=== PATIENT | male | born 1965 | race Caucasian/White ===

== ENCOUNTER 2023-08-25 14:47 | Outpatient (AMB) | payer BC, SELFPAY ==
--- NOTE | 2023-08-25 14:53 | A.OFFPC_ITS ---
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 Has been using claritin for relief. L heel pain PMHx: Childhood ADD/ADHD, concussions as a child, Scrotal issues, Erectile Dysfunction SurgHx: [place] teeth FHx: Mom: Sinus issues brother:??Bradycardia. Grandmother: ?Colon Cancer. Grandfather: Throat CA. Dad: Unknown. SocHx: Nonsmoker since 20s. EtOH none. MJ PFSH Medical History (Updated 08/25/23 @ 15:47 by Sergei Hanna) Scrotal cyst ADHD ADD (attention deficit disorder) No pertinent past medical history Surgical History (Updated 08/25/23 @ 15:04 by Jessica Henderson CMA) [place] teeth removed Family History (Updated 08/25/23 @ 15:05 by Jessica Henderson CMA) Mother History of sinus problem Social History (Updated 08/25/23 @ 15:09 by Jessica Henderson CMA) Household Members: Significant Other Patient Tobacco Use Status: Former Tobacco user e-Cigarette/Vaping Use: Never Used Substance Use Type: Marijuana Have you been hit, kicked, punched, or otherwise hurt by someone within the past year? If so, by whom?: No Do you feel safe in your current relationship?: Yes Is there a partner from a previous relationship who is making you feel unsafe now?: No Are you made to feel afraid or neglected: No Mormonism Healthcare Practices: mormonism Are you DNR?: No Advance Directives: No Advance Directives Information Provided: No Advance Directives on File: No Healthcare Proxy: No Questionnaire PHQ-9 Over the last 2 weeks, how often have you been bothered by any of the following problems? 1. Little interest or pleasure in doing things: not at all 2. Feeling down, depressed, or hopeless: not at all 3. Trouble falling or staying asleep, or sleeping too much: not at all 4. Feeling tired or having little energy: not at all 5. Poor appetite or overeating: not at all 6. Feeling bad about yourself - or that you are a failure or have let yourself or your family down: not at all 7. Trouble concentrating on things, such as reading the newspaper or watching television: not at all 8. Moving or speaking so slowly that other people could have noticed. Or the opposite - being so fidgety or restless that you have been moving around a lot more than usual: not at all 9. Thoughts that you would be better off or of hurting yourself in some way: not at all Total score: 0 Source: Developed by Drs. Sarmad Bass, Humaira Brown, Larry Mckay and colleagues, with an educational sally from [employer]. Thrive Questionnaire Date Thrive assessed: 08/25/23 I am a: Patient What is your living situation today?: I have a steady place to live Within the past 12 months, did the food you bought not last and you didn't have the money to get more?: Never true Within the past 12 months, did you worry whether your food would run out before you got money to buy more?: Never true Do you have trouble paying for medicines?: No Do you have trouble getting transportation to medical appointments?: No Do you have trouble paying your heating and electricity bill?: No Do you have trouble taking care of your child, family member or friend?: No Do you have trouble with day-to-day activities such as bathing, preparing meals, shopping, managing finances, etc.?: No Are you currently unemployed and looking for a job?: No Are you interested in more education?: No AUDIT C Alcohol Use Questionnaire (AUDIT-C) 1. How often do you have a drink containing alcohol?: 4 or more times a week 2. How many drinks containing alcohol do you have on a typical day when you are drinking?: 1 or 2 3. How often do you have six or more drinks on one occasion?: Never Total Score: 4 CORRIE-7 AMB Questionnaire CORRIE-7 Date CORRIE - 7 assessed: 08/25/23 Feeling nervous, anxious, or on edge: 1 = Several days Not being able to stop or control worryin = Not at all Worrying too much about different things: 0 = Not at all Trouble relaxin = Several days Being so restless that it is hard to sit still: 3 = Nearly every day (Patient has ADD) Becoming easily annoyed or irritable: 0 = Not at all Feeling afraid as if something awful might happen: 1 = Several days Total CORRIE-7 score (0-4 normal; 5-9 mild; 10-14 moderate; 15-21 severe): 6 Source: Developed by Drs. Sarmad Bass, Humaira Brown, Larry Mckay and colleagues, with an educational sally from [employer]. Review of Systems Const Denies chills, Denies fatigue, Denies fever(s), Denies headache(s) and Denies weakness ENT Denies dizziness and Denies headache(s) Card Denies chest pain, Denies lightheadedness, Denies dyspnea and Denies other (Palpitations) Resp Denies cough, Denies dyspnea, Denies wheezing and Denies other ( shortness of b reath) Musc Denies numbness and Denies tingling Neuro Denies dizziness, Denies headache(s), Denies numbness, Denies tingling, Denies paresthesias and Denies weakness Psych Denies anxiety and Denies depression Endo Denies fatigue Aller/Immun Denies wheezing Physical exam (Primary Care) Vital Signs: Last Vital Signs Pulse 67 08/25/23 14:55 BP 134/74 08/25/23 14:55 Pulse Ox 99 08/25/23 14:55 Oxygen Delivery Method Room Air 08/25/23 14:55 BMI result Body Mass Index 25.0 Tobacco/Smoking Status: Tobacco use Status Tobacco use date assessed 08/25/23 08/25/23 15:00 Patient Tobacco Use Status Former Tobacco user 08/25/23 15:09 e-Cigarette/Vaping Use Never Used 08/25/23 15:09 PHQ-9: PHQ-9 Score PHQ-9: Total score 0 08/25/23 15:24 Thrive Assessment: Date of Thrive Assessment Date Thrive assessed 08/25/23 08/25/23 15:17 Const General: no acute distress and well developed Nutritional Appearance: well nourished Orientation/consciousness: patient oriented x3 [facility] Head: Yes normocephalic and Yes atraumatic Eyes General: appearance normal, both eyes and all related structures Pupils: Equal, round and reactive pupils present EOM: EOMs intact bilaterally Resp Effort & Inspection: normal respiratory effort Auscultation: clear to auscultation bilaterally Cardio Rate: bradycardic Rhythm: regular rhythm Heart sounds: S1 normal heart sound present, S2 normal heart sound present, no gallops, no murmurs and no rubs Neuro General: patient oriented x3 and gait normal Cranial nerves: Yes Equal, round and reactive pupils present Psych Affect: normal affect Office Procedures EKG [id number], Complete Assessment and Plan Assessment & Plan (1) Sinusitis, chronic: Code(s): J32.9 - Chronic sinusitis, unspecified Plan: Continue?Claritin Trial?Flonase Also?discussed?nasal?saline,?hypoallergenic?bed?cover?and?humidified?air. Has?2?cats?and?briefly?advised?he?may?want?to?keep?him?out?of?the?bedroom (2) Pain of left heel: Code(s): M79.672 - Pain in left foot Plan: Prior?trauma?and?has?chronic?calcaneal?pain Advised?rest He?can?let?me?know?if?worsening?or?not?improving?and?we?can?check?an?x-ray (3) Scrotal cyst: Code(s): L72.9 - Follicular cyst of the skin and subcutaneous tissue, unspecified Plan: He?will?let?me?know?if?this?is?changing He?declines?a?referral?at?this?time (4) Difficulty concentrating: Code(s): R41.840 - Attention and concentration deficit Plan: Report?History?of?ADD/ADHD?as?a?child (5) Screening for colon cancer: Code(s): Z12.11 - Encounter for screening for malignant neoplasm of colon Plan: Referred?to?GI?as?patient?request (6) Bradycardia: Code(s): R00.1 - Bradycardia, unspecified Plan: Bradycardia?with?some?pauses. EKG: ?Sinus?bradycardia?with?occasional?PVCs, left?atrial?enlargement, incomplete?right?bundle?branch?block Family?history?of?bradycardia?and?cardiac?issues?with?brother Patient?is?asymptomatic. Will?send?him?for?an?echocardiogram.??May?need?referral?to?Cardiology (7) Erectile dysfunction: Code(s): N52.9 - Male erectile dysfunction, unspecified Plan: Patient?notes?erectile?dysfunction?over?the?summer?which?seems?to?have?resolved. Check?testosterone (8) Eustachian tube dysfunction: Code(s): H69.90 - Unspecified Eustachian tube disorder, unspecified ear Plan: As?above,?prescribing?Flonase?which?should?help?with?this (9) Laboratory exam ordered as part of routine general medical examination: Code(s): Z00.00 - Encounter for general adult medical examination without abnormal findings Plan: Check?lab (10) Left atrial enlargement: Code(s): I51.7 - Cardiomegaly Orders: Orders Comprehensive [place]. Panel Fast Today Z00.00 - Encounter for general adult medical examination without abnormal findings Lipid Panel Today Z00.00 - Encounter for general adult medical examination without abnormal findings Microalbumin, Random (w Creat) Today I10 - Essential (primary) hypertension TSH reflex Free T4 Today Z00.00 - Encounter for general adult medical examination without abnormal findings UA and rflx microscopic Today Z00.00 - Encounter for general adult medical examination without abnormal findings Testosterone, Free/Total Today N52.9 - Male erectile dysfunction, unspecified AMB EKG-In Office Today R00.2 - Palpitations Prostate Specific Antigen Scr Today Z12.5 - Encounter for screening for malignant neoplasm of prostate CA echo transthoracic complete Today I51.7 - Cardiomegaly, R94.31 - Abnormal electrocardiogram [ECG] [EKG] Referrals Gastroenterology Referral Z12.11 - Encounter for screening for malignant neoplasm of colon Medications: New fluticasone propionate 50 mcg/actuation (Flonase Allergy Relief) administer into each nostril 1 spray intranasal Q12H 16 grams 2RF 30 days Coding Level of Care Code New Pt Level 4 (95001) Diagnoses Sinusitis, chronic J32.9 Pain of left heel M79.672 Scrotal cyst L72.9 Difficulty concentrating R41.840 Screening for colon cancer Z12.11 Bradycardia R00.1 Erectile dysfunction N52.9 Eustachian tube dysfunction H69.90 Laboratory exam ordered as part of routine general medical examination Z00.00 Left atrial enlargement I51.7 CPT Codes EKG - CPT: 03477-[id number], Complete ([id number])
[2023-08-25 14:55] VITALS: BP 134/74; PULSE 67; O2SAT 99; BMI 25.0
== END 2023-08-25 16:06 | disposition home or self-care (01) ==
PROVIDERS: PCP Family Medicine; Visit Provider Family Medicine
DX: J32.9 Chronic sinusitis, unspecified (principal); M79.672 Pain in left foot; L72.9 Follicular cyst of the skin and subcutaneous tissue, unspecified; R41.840 Attention and concentration deficit; Z12.11 Encounter for screening for malignant neoplasm of colon; R00.1 Bradycardia, unspecified; N52.9 Male erectile dysfunction, unspecified; H69.90 Unspecified Eustachian tube disorder, unspecified ear; Z00.00 Encounter for general adult medical examination without abnormal findings; I51.7 Cardiomegaly
CPT/HCPCS: 93000; 99204

== ENCOUNTER → 2023-09-21 14:43 | Outpatient (REF) | payer BC, SELFPAY ==
--- NOTE | 2023-09-21 14:50 | CA_ITS ---
Transthoracic Echocardiogram Patient (Last, First, Middle): Speedy Zhou, Gender: Male Date of : 1965 Age: 58 Procedure Date: 09/21/2023 Procedure Type: Transthoracic Echocardiogram Location: OP Height: 177.8 cm Weight: 78.93 kg BSA: 1.97 m2 Heart Rate: bpm BP: 124 / 70 mmHg Hip Hop Dancer: RUBEN Referring MD: Luis Guevara MD Symptoms: I51.7 - Cardiomegaly Study Quality: Adequate ECG Rhythm: Sinus Conclusions: - Mildly increased left ventricular cavity size. - The left ventricular systolic function is normal. The calculated ejection fraction is 65% by biplane method. - The left atrium is mildly dilated. - No obvious valvular pathology seen on this study. Findings Left Ventricle Mildly increased left ventricular cavity size. There is normal left ventricular wall thickness. The left ventricular systolic function is normal. The calculated ejection fraction is 65% by biplane method. There is no evidence of regional wall motion abnormalities. Diastolic function is normal for age. LV peak GLS -23%. Right Ventricle Mildly increased right ventricular cavity size. There is normal right ventricular systolic function. Atria The left atrium is mildly dilated. The right atrium is normal in size. Aortic Valve There is a normal trileaflet aortic valve. There is mild calcification of the aortic valve. There is no aortic valve stenosis. There is no aortic valve regurgitation. Mitral Valve The mitral valve appears normal. There is trace mitral valve regurgitation. There is no mitral valve stenosis. Pulmonic Valve The pulmonic valve is likely normal. Tricuspid Valve Normal tricuspid valve structure. There is trace tricuspid valve regurgitation. There is no evidence of pulmonary hypertension. Great Vessels The asc aorta is normal in size. Venous The inferior vena cava is normal in size and collapses greater than 50% with inspiration. Pericardium/Pleural There is a trivial pericardial effusion. Prior Study Comparison No prior study available for comparison. Recommendations, Care & Conclusions No obvious valvular pathology seen on this study. Measurements 2D Linear Measurements IVSd: 0.85 0.6-0.9/0.6-1.0 cm LVIDd: 5.80 3.9-5.3/4.2-5.9 cm LVIDd Index: 2.94 2.4-3.2/2.2-3.1 cm/m2 LVIDs: 3.26 2.0-3.6 cm LVPWd: 0.89 0.7-1.1 cm LA Diam: 3.60 2.7-3.8/3.0-4.0 cm LAIDs Index: 1.83 1.5-2.3 cm/m2 LV Mass: 242.89 67-162/88-224 g LV Mass Index: 123.29 43-95/49-115 g/m2 LVOT Diam: 2.20 3.0+(-)1.3 cm 2D Systolic Function EF 4C: 62.80 >55% EF 2C: 70.20 >55% EF BiP: 65.40 >55% Mitral Valve MV Pk E: 0.84 MV PK A: 0.55 MV Decel Time: 202.00 E/A: 1.50 E'Lateral: 7.83 E'Medial: 7.94 E/E' Med: 10.50 E/E' Lat: 10.70 PHT: 59.00 MVA PHT: 3.73 Decel Talbot: 4.14 Aortic Valve AoV Pk Walter: 1.73 AoV Mn Walter: 1.07 AoV VTI: 0.35 AoV Pk Grad: 12.00 Aov Mn Grad: 5.00 URVASHI Cont.VTI: 2.85 LVOT LVOT Pk Walter: 1.27 LVOT Mn Walter: 0.82 LVOT VTI: 0.27 LVOT Pk Grad: 6.00 LVOT Mn Grad: 3.00 LVOT Diam: 2.20 LVOT Area: 3.80 Diastolic Function MV Pk E: 0.84 MV Pk A: 0.55 E/A: 1.50 E'Medial: 7.94 E/E' Med: 10.50 E' Laterial: 7.83 E/E' Lat: 10.70 Right Ventricle TAPSE (mm): 27.20 TVS' Walter: 12.10 Tricuspid Valve RA Press: 3.00 Great Vessels Aorta Sinus of Valsalva: 3.70 2.0-3.[address] [place]: 2.71 1.7-3.4 cm Ao Asc: 3.50 2.1-3.4 cm Ao Arch: 3.00 Updated in Other Vendor System with Status of Final Nhan Gonzalez MD electronically signed on 09/23/2023 1:29:49 PM with status of Final
== END ==
LOC: HO.CARD 14:43
PROVIDERS: PCP Family Medicine; Visit Provider Family Medicine
DX: I51.7 Cardiomegaly (principal); R94.31 Abnormal electrocardiogram [ECG] [EKG]
CPT/HCPCS: 93306; 93356

== ENCOUNTER → 2023-09-21 14:50 | Outpatient (BNV) | payer BC, SELFPAY | PROVIDERS: PCP Family Medicine; Visit Provider Internal Medicine | DX: I51.7 Cardiomegaly (principal); I35.8 Other nonrheumatic aortic valve disorders | CPT/HCPCS: 93306 ==

== ENCOUNTER 2023-10-31 14:38 | Outpatient (AMB) | payer BC, SELFPAY ==
--- NOTE | 2023-10-31 14:45 | A.OFFVIS_ITS ---
Intake Vital Signs 10/31/23 14:47 Height 5 ft 10 in Weight 175 lb BMI 25.1 BP 159/82 H Blood Pressure Location Rt brachial Position Sitting Pulse 58 Intake Visit Reasons: Colonoscopy screening Intake Note: Patient presents to in office visit today as a new patient for colonoscopy screening. CC: Patient denies having any GI symptoms. He has never had any colonoscopy done. Worship Director Required: No Allergies No Known Allergies Allergy (Verified 10/31/23 14:51) HPI Colonoscopy screening HPI Details 58 year old?male here today for pre colo noscopy screening.? Patient was sent to us by his PCP.? This is his first colonoscopy screening.? Patient denies any gastrointestinal symptoms in the past or at present.? Denies any personal or family history of gastrointestinal disease, colon polyps, or cancer.? Denies history of difficulty with sedation or anesthesia in the past.? Negative for history of sleep apnea.? Denies any history of cardiac, renal, pulmonary, or hepatic disease.?? No history of infectious ?diseases like hepatitis A, B, C, HIV or tuberculosis.? Patient is not on any anticoagulation therapy. [facility] Medical History Scrotal cyst ADHD ADD (attention deficit disorder) No pertinent past medical history Surgical History [place] teeth removed Family History Mother History of sinus problem Maternal Grandfather Metastatic squamous cell carcinoma involving throat with unknown primary site Maternal Grandmother Stomach cancer Social History Household Members: Significant Other Patient Tobacco Use Status: Former Tobacco user e-Cigarette/Vaping Use: Never Used Substance Use Type: Marijuana Review of Systems Const Denies weight gain and Denies weight loss ENT Reports no additional complaints, Denies dysphagia and Denies odynophagia Card Reports no additional complaints Resp Reports no additional complaints GI Denies abdominal pain, Denies belching, Denies melena, Denies bloating, Denies change in bowel habits, Denies dysphagia, Denies excessive flatus, Denies dyspepsia, Denies heartburn, Denies diarrhea, Denies loose stools, Denies nausea, Denies odynophagia and Denies vomiting Reports no additional complaints Musc Reports no additional complaints Neuro Reports no additional complaints Psych Reports no additional complaints Endo Reports no additional complaints Physical Exam Vital Signs: Last Vital Signs Pulse 58 10/31/23 14:47 BP 159/82 H 10/31/23 14:47 BMI result Body Mass Index 25.1 Const General: healthy appearing, no acute distress and well developed Nutritional Appearance: well nourished Orientation/consciousness: patient oriented x3 Resp Effort & Inspection: normal respiratory effort, able to speak in complete sentences, no tracheal deviation and symmetric chest movement Auscultation: clear to auscultation bilaterally Cardio Rate: regular rate GI Inspection: Yes normal to inspection and No distended Palpation (GI): Soft to palpation, not firm, nontender and No hepatosplenomegaly present Auscultation: normal bowel sounds General: Yes no CVA tenderness Back/Spine/Pelvis Back: no CVA tenderness Skin General skin exam: elasticity normal, turgor normal and dry skin Neuro General: patient oriented x3 Psych Appearance: grossly normal Mental Status: mental status grossly normal Assessment & Plan Assessment & Plan (1) Screening for colon cancer: Code(s): Z12.11 - Encounter for screening for malignant neoplasm of colon Plan: Patient denies any GI, cardiac or respiratory symptoms.? Denies any issues with anesthesia in the past.? Denies any history of sleep apnea.? No history infectious diseases in the past or present.? Not on any anticoagulation therapy.? No family or personal history of colon cancer or polyps.? Patient denies melena, hematochezia, unintentional weight loss or ribbon like stools.? Discussed at length the pre-procedure,? prep, diet & medications as well as what to expect prior, during and after the procedure.?? Stressed the importance of good bowel prep. ?Recommended the use of Vaseline or Calmoseptine OTC & baby wipes with bowel movements to promote comfort.? ?Patient verbalizes understanding and agrees to plan of care.? She was given the opportunity to ask questions and all questions answered.? We will see her after the procedure.? Medications: New bisacodyl (Dulcolax (bisacodyl)) take 4 tabs at noon the day before your colonoscopy 20 mg (4 x 5 mg) PO ONCE 1 day 4 tabs 0RF Z12.11 - Encounter for screening for malignant neoplasm of colon polyethylene glycol 3350 (Miralax) As directed by gastroenterology department at [facility] 238 grams PO ONCE 238 grams 0RF Z12.11 - Encounter for screening for malignant neoplasm of colon Coding Level of Care Code New Pt Level 3 (03942) Diagnoses Screening for colon cancer Z12.11 Time Spent (min) 40 Comment 30 minutes spent with patient and additional 10 minutes spent reviewing his records
[2023-10-31 14:47] VITALS: BP 159/82; PULSE 58; BMI 25.1
== END 2023-11-02 11:32 | disposition home or self-care (01) ==
PROVIDERS: PCP Family Medicine; Visit Provider Nurse Practitioner Family
DX: Z01.818 Encounter for other preprocedural examination (principal); Z12.11 Encounter for screening for malignant neoplasm of colon
CPT/HCPCS: S0285

== ENCOUNTER → 2023-10-31 14:38 | Outpatient (BNVA) | payer BC, SELFPAY | PROVIDERS: PCP Family Medicine; Visit Provider Nurse Practitioner Family ==

== ENCOUNTER 2023-11-03 07:09 | Outpatient (REF) | payer BC, SELFPAY ==
[2023-11-03 11:46] LABS: Appearance Urine Clear; Color Urine Yellow; Glucose Urine UA Negative (Negative); Leukocyte Esterase Urine Negative (Negative); Nitrite Urine Negative (Negative); PH 6.5 (5.0-9.0); Urine Blood Negative (Negative); Urine Ketones Negative (Negative); Urine Protein Negative (Neg-Trace)
[2023-11-03 13:12] LABS: Creatinine Urine 108.82 mg/dL; Microalbumin Urine < 5.0 mg/L
[2023-11-03 13:29] LABS: Alanine Aminotransferase 19 U/L (0-40); Albumin Level 4.4 g/dL (3.5-5.0); Alkaline Phosphatase 77 U/L (39-117); Anion Gap 13 (12-20); Aspartate Amino Transferase 15 U/L (5-37); Bilirubin Total 0.4 mg/dL (0.0-1.0); Blood Urea Nitrogen 17 mg/dL (9-16); Calcium 9.7 mg/dL (8.4-10.2); Carbon Dioxide 29 mmol/L (22-29); Chloride 105 mmol/L (96-108); Cholesterol 252 mg/dL (<200); Estimated Glomerular Filt Rate > 60; Glucose Fasting 101 mg/dL (60-99); HDL Cholesterol 92 mg/dL (>40); LDL Cholesterol Calculated 147 mg/dL (<100); Potassium 4.5 mmol/L (3.3-5.1); Sodium 142 mmol/L (135-145); Total Protein 7.1 g/dL (6.5-8.0); Triglycerides 68 mg/dL (<150)
[2023-11-03 13:38] LABS: Prostate Specific Antigen Scr 0.48 ng/mL (<0.05-4.0)
[2023-11-03 13:44] LABS: TSH reflex Free T4 0.51 uIU/mL (0.32-4.0)
[2023-11-07 14:29] LABS: Testosterone, Free 109.9 pg/mL (35.0-155.0); Testosterone, Total 1067 ng/dL (250-1100)
== END 2023-11-03 07:10 | disposition home or self-care (01) ==
LOC: HO.WFDLDS 07:09
PROVIDERS: Visit Provider Family Medicine
DX: Z00.00 Encounter for general adult medical examination without abnormal findings (principal); Z12.5 Encounter for screening for malignant neoplasm of prostate; I10 Essential (primary) hypertension; N52.9 Male erectile dysfunction, unspecified
CPT/HCPCS: 36415; 80053; 80061; 81003; 82043; 82570; 84153; 84402; 84403; 84443

== ENCOUNTER 2024-02-02 13:52 | Outpatient (AMB) | payer BC, SELFPAY ==
[2024-02-02 14:08] VITALS: BP 134/78; PULSE 55; O2SAT 97; BMI 24.2
--- NOTE | 2024-02-02 14:08 | A.OFFPC_ITS ---
Vital Signs 02/02/24 14:08 Height 5 ft 10 in Weight 168 lb 6 oz BMI 24.2 BP 134/78 Blood Pressure Location Lt brachial Position Sitting Pulse 55 Pulse Source Pulse Oximeter Pulse Oximetry (%) 97 Oxygen Delivery Method Room Air Intake Visit Reasons: CPE with f/u labs and health maintenance Intake Note: Patient is here for a physical today with follow up on labs and health m aintenance. Allergies No Known Allergies Allergy (Verified 02/02/24 14:09) Tobacco use date assessed: 02/02/24 Dental Screening Dental Screen Date: 02/02/24 Did you have a dental visit in the last 12 months?: Yes Did you have a dental problem in the last 6 months where you did not have access to dental care?: No Was dental information given to patient?: Patient has dentist HPI CPE with f/u labs and health maintenance HPI Details 58 y/o male presents for a CPE with f/u labs and health maintenance. Last EKG in August due to bradycardia with some premature beats, showed bradycardia with PVCs, atrial enlargement and R bandle branch b lock. Labs were drawn 11/03/23. Reviewed labs with pt. Elevated fasting glucose of 101. A1c today 02/02/24 is 5.5%. Triglycerides 68. TC 252. LDL 147. HDL 92. Pt notes he is scheduled for a colonoscopy March 16. HPI Comments History of Present Illness Details Documentation assistance for Luis Guevara MD, was provided by Sergei Hanna, Cartography Supervisor on 02/02/2024 2:47 PM EST. I, Dr. Guevara, have read, observed, and verified documentation. [facility]LY [facility] Medical History Scrotal cyst ADHD ADD (attention deficit disorder) No pertinent past medical history Surgical History [place] teeth removed Family History (Updated 02/02/24 @ 14:14 by Jessica Henderson CMA) Mother History of sinus problem Maternal Grandfather Metastatic squamous cell carcinoma involving throat with unknown primary site Maternal Grandmother Stomach cancer Social History Household Members: Significant Other Housing: Apartment Patient Tobacco Use Status: Former Tobacco user e-Cigarette/Vaping Use: Never Used Substance Use Type: Marijuana Current occupational status: employed 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 1. Little interest or pleasure in doing things: not at all 2. Feeling down, depressed, or hopeless: not at all 3. Trouble falling or staying asleep, or sleeping too much: not at all 4. Feeling tired or having little energy: not at all 5. Poor appetite or overeating: not at all 6. Feeling bad about yourself - or that you are a failure or have let yourself or your family down: not at all 7. Trouble concentrating on things, such as reading the newspaper or watching television: not at all 8. Moving or speaking so slowly that other people could have noticed. Or the opposite - being so fidgety or restless that you have been moving around a lot more than usual: not at all 9. Thoughts that you would be better off or of hurting yourself in some way: not at all Total score: 0 Depression Screening Interpretation: Negative Depression Screening Done: Yes Source: Developed by Drs. Sarmad Bass, Humaira Brown, Larry Mckay and colleagues, with an educational sally from [employer]. Thrive Questionnaire Date Thrive assessed: 02/02/24 I am a: Patient What is your living situation today?: I have a steady place to live Within the past 12 months, did the food you bought not last and you didn't have the money to get more?: Never true Within the past 12 months, did you worry whether your food would run out before you got money to buy more?: Never true Do you have trouble paying for medicines?: No Do you have trouble getting transportation to medical appointments?: No Do you have trouble paying your heating and electricity bill?: No Do you have trouble taking care of your child, family member or friend?: No Do you have trouble with day-to-day activities such as bathing, preparing meals, shopping, managing finances, etc.?: No Are you currently unemployed and looking for a job?: No Are you interested in more education?: No THRIVE Score: 0 AUDIT C Alcohol Use Questionnaire (AUDIT-C) 1. How often do you have a drink containing alcohol?: 4 or more times a week 2. How many drinks containing alcohol do you have on a typical day when you are drinking?: 1 or 2 3. How often do you have six or more drinks on one occasion?: Never Total Score: 4 CORRIE-7 AMB Questionnaire CORRIE-7 Date CORRIE - 7 assessed: 02/02/24 Feeling nervous, anxious, or on edge: 1 = Several days Not being able to stop or control worryin = Nearly every day Worrying too much about different things: 0 = Not at all Trouble relaxin = Nearly every day Being so restless that it is hard to sit still: 3 = Nearly every day Becoming easily annoyed or irritable: 0 = Not at all Feeling afraid as if something awful might happen: 3 = Nearly every day Total CORRIE-7 score (0-4 normal; 5-9 mild; 10-14 moderate; 15-21 severe): 13 Source: Developed by Drs. Sarmad Bass, Humaira Brown, Larry Mckay and colleagues, with an educational sally from [employer]. Review of Systems Const Denies chills, Denies fatigue, Denies fever(s), Denies headache(s) and Denies weakness Eyes Denies change in vision ENT Denies dizziness, Denies headache(s), Denies hearing loss, Denies nasal congestion, Denies sinus pain, Denies sinus pressure and Denies sore throat Card Denies chest pain, Denies lightheadedness, Denies dyspnea and Denies other (palpitations) Resp Denies cough, Denies dyspnea and Denies wheezing GI Denies abdominal pain, Denies melena, Denies hematochezia, Denies change in bowel habits, Denies dyspepsia and Denies nausea Denies hematuria and Denies dysuria Musc Denies abnormal gait, Denies myalgias, Denies arthralgias, Denies numbness and Denies tingling Skin/Breast Denies rash, Denies unusual bruising and Denies wounds Neuro Denies abnormal gait, Denies dizziness, Denies headache(s), Denies memory loss, Denies numbness, Denies Sensory deficit (Neuro), Denies tingling and Denies weakness Psych Denies anxiety, Denies depression and Denies memory loss Endo Denies cold intolerance, Denies fatigue, Denies heat intolerance, Denies polydipsia and Denies polyuria Hesham/Lymph Denies easy bleeding and Denies easy bruising Aller/Immun Denies wheezing Physical exam (Primary Care) Vital Signs: Last Vital Signs Pulse 55 02/02/24 14:08 BP 134/78 02/02/24 14:08 Pulse Ox 97 02/02/24 14:08 Oxygen Delivery Method Room Air 02/02/24 14:08 BMI result Body Mass Index 24.2 Tobacco/Smoking Status: Tobacco use Status Tobacco use date assessed 02/02/24 02/02/24 14:10 Patient Tobacco Use Status Former Tobacco user 02/02/24 14:08 e-Cigarette/Vaping Use Never Used 02/02/24 14:08 PHQ-9: PHQ-9 Score PHQ-9: Total score 0 02/02/24 14:20 Depression Screening Interpretation: Negative Thrive Assessment: Date of Thrive Assessment Date Thrive assessed 02/02/24 02/02/24 14:20 Const General: no acute distress, well developed, alert and awake Nutritional Appearance: well nourished Orientation/consciousness: patient oriented x3 HENMT Head: Yes normocephalic and Yes atraumatic Ears: hearing grossly normal bilaterally and TM's normal bilaterally General nose exam: Normal external nose present and Normal nares present Mouth: Normal oral and palatal mucosa present and moist mucous membranes Teeth and gingiva: dentition normal Throat: Yes posterior oropharynx normal Eyes General: appearance normal, both eyes and all related structures Pupils: Equal, round and reactive pupils present and Pupil accommodation reflex normal EOM: EOMs intact bilaterally Neck Neck: Yes normal visual inspection, Yes no lymphadenopathy and Yes trachea midline Thyroid: Thyroid normal Carotids: no bruits Lymphatic: no lymphadenopathy noted Chest Chest palpation & inspection: normal inspection of the chest Resp Effort & Inspection: normal respiratory effort Auscultation: clear to auscultation bilaterally Cardio Rate: regular rate Rhythm: regular rhythm Heart sounds: S1 normal heart sound present, S2 normal heart sound present, no gallops, no murmurs and no rubs Bruits: no abdominal aortic bruits and no carotid bruits GI Palpation (GI): No Abdominal aortic bruit present, Soft to palpation, nontender, No hepatosplenomegaly present and No Rebound tenderness present Auscultation: normal bowel sounds General: Yes no CVA tenderness Back/Spine/Pelvis Back: no CVA tenderness Cervical Spine: cervical ROM normal and No Cervical spine tenderness Thoracic/Lumbar Spine: thoraco-lumbar ROM normal, No pain with thoraco-lumbar ROM, No thoracic spinal tenderness and No lumbar spinal tenderness Skin Lesions: no lesions Rashes: no rashes Trauma: no lacerations or abrasions Wounds: no wounds Nails: normal Neuro General: patient oriented x3 Cranial nerves: Yes Equal, round and reactive pupils present Cognition (Neuro): normal cognition Gait exam (Neuro): Normal gait present Motor exam (neuro): 5/5 motor strength present throughout Sensory Exam: No Sensory deficit (Neuro) Deep tendon reflexes (DTR's): Right patellar reflex intensity grade: 2+ and Left patellar reflex intensity grade: 2+ Extrem General: Yes normal to inspection and No edema Psych Appearance: grossly normal Affect: normal affect Attitude: cooperative Thought process: Normal thought process present Assessment and Plan Assessment & Plan (1) Adult general medical exam: Code(s): Z00.00 - Encounter for general adult medical examination without abnormal findings Plan: 58-year-old?male?presents?for?complete?physical?exam Encouraged?healthy?diet?with?active?lifestyle?and?ongoing?exercise (2) Mild cardiomegaly: Code(s): I51.7 - Cardiomegaly Plan: Mild?ventricular?enlargement?and?patient?has?had?elevated?blood?pressures. Strong?family?history?of?heart?disease Referred?to?cardiology (3) Elevated fasting glucose: Code(s): R73.01 - Impaired fasting glucose Plan: A1c?at?top?normal?range; 5.5% Encouraged?a?diet?lower?in?sugars?and?starches (4) Screening for colon cancer: Code(s): Z12.11 - Encounter for screening for malignant neoplasm of colon Plan: He?has?his?colonoscopy?scheduled?for?next?month Follow-up?with?GI?as?recommended (5) Hyperlipidemia: Code(s): E78.5 - Hyperlipidemia, unspecified Plan: TC?and?LDL?cholesterol?are?too?high.??HDL?ratios?are?good?however. Given?strong?family?history?of?heart?disease,?I?recommended?he?work?at?a?diet?lo wer?in?saturated?fats?and?cholesterol Will?follow-up?again?in?a?few?months.??Labs?are?ordered (6) Screening for prostate cancer: Code(s): Z12.5 - Encounter for screening for malignant neoplasm of prostate Plan: PSA?was?within?normal?limit We?will?continue?annual?screen (7) Hypertension: Code(s): I10 - Essential (primary) hypertension Plan: Blood?pressure?in?prehypertensive?and?hypertensive?range No?blood?pressure?is?in?normal?range Strong?family?history?of?heart?disease Echo?showed?mild?ventricular?enlargement He?will?start?losartan. Will?follow-up?in?3?months Orders: Orders Comprehensive [place]. Panel Fast Today E78.5 - Hyperlipidemia, unspecified, Z00.00 - Encounter for general adult medical examination without abnormal findings Lipid Panel Today E78.5 - Hyperlipidemia, unspecified, Z00.00 - Encounter for general adult medical examination without abnormal findings Hemoglobin A1c Today R73.01 - Impaired fasting glucose Referrals Cardiology Referral I51.7 - Cardiomegaly, R00.1 - Bradycardia, unspecified Medications: New losartan 25 mg PO DAILY 90 days 90 tabs 2RF Coding Level of Care Code Est Pt Level 3 (38955) Est Pt Prev Care 40-64y(43283) Diagnoses Adult general medical exam Z00.00 Mild cardiomegaly I51.7 Elevated fasting glucose R73.01 Screening for colon cancer Z12.11 Hyperlipidemia E78.5 Screening for prostate cancer Z12.5 Hypertension I10
== END 2024-02-02 14:55 | disposition home or self-care (01) ==
PROVIDERS: PCP Family Medicine; Visit Provider Family Medicine
DX: Z00.00 Encounter for general adult medical examination without abnormal findings (principal); I51.7 Cardiomegaly; R73.01 Impaired fasting glucose; E78.5 Hyperlipidemia, unspecified; I10 Essential (primary) hypertension; Z12.5 Encounter for screening for malignant neoplasm of prostate; Z12.11 Encounter for screening for malignant neoplasm of colon
CPT/HCPCS: 99214; 99396

== ENCOUNTER 2024-03-16 10:12 | Day surgery (SDC) | payer BC, SELFPAY ==
--- NOTE | 2024-03-14 13:32 | HO.ANESPROP2 ---
Documented by User: Jailene Jimenez NP 03/14/24 13:34 HPI - Anesthesia Eval Consult details Narrative: 58yo M for Colonoscopy PMFSH Active Problems Active Problems: All Active Problems Hypertension (Acute) Hyperlipidemia (Acute) Elevated fasting glucose (Acute) Screening for prostate cancer (Acute) Adult general medical exam (Acute) Eustachian tube dysfunction (Acute) Bradycardia (Acute) Difficulty concentrating (Acute) Pain of left heel (Acute) Scrotal cyst (Acute) Sinusitis, chronic (Acute) Laboratory exam ordered as part of routine general medical examination (Acute) Screening for colon cancer (Acute) Past Medical History Medical History Enlarged heart Scrotal cyst ADHD ADD (attention deficit disorder) No pertinent past medical history Family History Family History Mother History of sinus problem Maternal Grandfather Metastatic squamous cell carcinoma involving throat with unknown primary site Maternal Grandmother Stomach cancer Surgical History Surgical History [place] teeth removed Social History Social History Household Members: Significant Other Housing: Apartment Patient Tobacco Use Status: Former Tobacco user e-Cigarette/Vaping Use: Never Used Use of substances other than those prescribed or required for medical reasons: Yes Substance Use Type: Marijuana Are you DNR?: No Advance Directives: No Advance Directives Information Provided: Yes Current occupational status: employed 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 - The left ventricular systolic function is normal. The calculated ejection fraction is 65% by biplane method. - The left atrium is mildly dilated. - No obvious valvular pathology seen on this study. Assessment and Plan Assessment Anesthesia Assessment: Chart Reviewed Documented by User: Deneen Conner MD 03/16/24 13:41 PMF Past Medical History Medical History Enlarged heart Scrotal cyst ADHD ADD (attention deficit disorder) No pertinent past medical history Family History Family History Mother History of sinus problem Maternal Grandfather Metastatic squamous cell carcinoma involving throat with unknown primary site Maternal Grandmother Stomach cancer Surgical History Surgical History [place] teeth removed History of Problems with Anesthesia: No Social History Social History Household Members: Significant Other Housing: Apartment Patient Tobacco Use Status: Former Tobacco user e-Cigarette/Vaping Use: Never Used Use of substances other than those prescribed or required for medical reasons: Yes Substance Use Type: Marijuana Are you DNR?: No Advance Directives: No Advance Directives Information Provided: Yes Current occupational status: employed 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 Cognitive needs: No Hearing needs: No Vision needs: No Meds Allergies Allergy/AdvReac Type Severity Reaction Status Date / Time No Known Allergies Allergy Verified 02/02/24 14:09 Exam Airway Mallampati Class: II TM Dist: >3cm Neck ROM: Full Loose/Missing/Broken Teeth: No Heart: RRR Lungs: CTA Assessment and Plan Assessment Anesthesia Assessment: Anesthesia Plan Discussed Final Anesthetic Review History of Problems with Anesthesia: No NPO: Yes ASA Class: II Final Preanesthetic Review: Meds/Allgs Chart Reviewed, Consent Obtained/Reviewed and Anes Risks/Benef Reviewed Patient Risk: Low Procedure Risk: Low Anesthetic Plan Anesthetic Plan: MAC: Disposition: Standard PACU
[2024-03-16 10:54] VITALS: BMI 21.5
--- NOTE | 2024-03-16 11:08 | MHC.SHP ---
Pre-Procedural Eval Section A - 24 Hr Update-Section A only Date of Service: 03/16/24 Section B - Complete if H&P > 30 days Chief Complaint: Encounter for screening for malignant neoplasm of Relevant Family History (Specify if Yes): No Relevant Social History: Other (specify) (thc) Present Medications: see Short Stay Collaborative assessment Medical History: Significant History (Scrotal cyst ADHD ADD (attention deficit disorder)) History of Previous Operations: Relevant previous surgery/procedure and date(s) ([place] teeth removed) Allergies: Allergies Allergy/AdvReac Type Severity Reaction Status Date / Time No Known Allergies Allergy Verified 02/02/24 14:09 Review of Systems Sugical H&P ROS: Negative: Constitution, Cardiovascular, Respiratory, Neurological, Psychiatric, Hem-Onc, Allergic/Immunologic, Gastrointestinal, Genitourinary, Musculoskeletal, Integumentary, Endocrine and Eyes/Ears/Nose/Throat Exam Surgical H&P Exam: Normal: HEENT, Normal: Heart, Normal: Lungs, Normal: Extremities, Normal: Abdomen, Normal: Skin and Normal: Neurological Plan Diagnosis/Plan: Unchanged I have reviewed the history and physical and performed a pertinent physical examination on my patient. No changes have occurred unless specified. Time Spent With Patient Time: Total time managing care of this patient today ____ minutes.
[2024-03-16 11:28] VITALS: BP 144/86; PULSE 52; RESP 18; TEMP 36.2; O2SAT 98; BMI 21.5
[2024-03-16] MEDS: Lactated Ringers 1,000 ML 100 ML IVCONT (11:32)
--- NOTE | 2024-03-16 12:07 | HO.OPN-COLON ---
Colonoscopy Operative Note Operative Note Date of Service: 03/16/24 Narrative: Operative Information Procedure Description: Colonoscopy Indication: colon screening Anesthesia: MAC COLONOSCOPY Instrument: Olympus variable stiffness pediatric scope 190L Colonoscopy Monitoring: Vital signs and clinical assessment, continuous EKG monitoring, Pulse oximetry, Carbon Dioxide monitoring and blood pressure monitoring were done throughout the procedure. Colon withdrawal time was 10 minutes. Procedure: The patient was placed in the left lateral decubitis position and pre-procedure medications were administered. After a digital rectal examination of the ano-rectum, the video colonoscope was inserted into the rectum and advanced through the colon to the cecum/TI. The colonoscope was slowly withdrawn in a retrograde panoramic fashion and the colon mucosa was carefully examined including a retroflexed view of the rectum. Findings and interventions are described below. Procedure Difficulty: easy Findings: Terminal Ileum-normal Cecum:normal Right sided retroflexion- normal Ascending Colon: normal Transverse Colon -normal Descending Colon: x 2 flatg polyps 6-8 mm, raised with eleview and removed with cold snare Sigmoid Colon: normal Rectum: Retroflexion with small internal hemorrhoids seen, grade I Anorectum - normal Intervention: cold snare and eleview injection Colon preparation: [place] Bowel Preparation Scale Right colon; 2 Transverse colon: 2 Left colon; 2 (0 = Unprepared colon segment with mucosa not seen due to solid stool that cannot be cleared. 1 = Portion of mucosa of the colon segment seen, but other areas of the colon segment not well seen due to staining, residual stool and/or opaque liquid. 2 = Minor amount of residual staining, small fragments of stool and/or opaque liquid, but mucosa of colon segment seen well. 3 = Entire mucosa of colon segment seen well with no residual staining, small fragments of stool or opaque liquid) Impression and Post Procedure Diagnosis: colon polyps internal hemorrhoids Plan: High fiber diet leaflet Avoid straining at stool, epsom salts and sitz bath, anusol supps or cream Repeat Colonoscopy in 5 years if adenomatous polyps, 10 yrs if hyperplastic or earlier if clinically indicated Above findings were reviewed with the patient and relevant handouts were provided if indicated.
[2024-03-16 14:23] VITALS: BP 102/83; PULSE 48; RESP 12; TEMP 36.1; O2SAT 98
[2024-03-16 14:38] VITALS: BP 103/64; PULSE 49; RESP 14; O2SAT 98
[2024-03-16 14:53] VITALS: BP 123/66; PULSE 52; RESP 15; TEMP 36.4; O2SAT 99
== END 2024-03-16 15:38 | disposition home or self-care (01) ==
PROVIDERS: PCP Family Medicine; Visit Provider Internal Medicine Gastroenterology
PROC: 0DJD8ZZ Inspection of Lower Intestinal Tract, Via Natural or Artificial Opening Endoscopic (ICD-10-PCS; CPT 45378; principal; 2024-03-16 13:30)
DX: Z12.11 Encounter for screening for malignant neoplasm of colon (principal); D12.4 Benign neoplasm of descending colon; K64.0 First degree hemorrhoids
CPT/HCPCS: 45385; 45381; 88305; J2704

== ENCOUNTER → 2024-03-16 10:12 | Outpatient (BNV) | payer BC, SELFPAY | PROVIDERS: PCP Family Medicine; Visit Provider Internal Medicine Gastroenterology | DX: Z12.11 Encounter for screening for malignant neoplasm of colon (principal); D12.4 Benign neoplasm of descending colon; K64.0 First degree hemorrhoids | CPT/HCPCS: 45381; 45385 ==

== ENCOUNTER 2024-03-30 14:38 | Outpatient (AMB) | payer BC, SELFPAY ==
--- NOTE | 2024-03-30 14:50 | MHC.OFFVIS ---
Vital Signs 03/30/24 14:54 Height 5 ft 10 in Weight 153 lb 14.122 oz BMI 22.1 BP 116/62 Blood Pressure Location Lt brachial Position Sitting Pulse 60 Pulse Source Pulse Oximeter Pulse Oximetry (%) 97 Oxygen Delivery Method Room Air Intake Visit Reasons: S/P Newcomb: Intake Note: Speedy presents to the office today for a post op FUV (colo) CC; Pt denies having any post op complications or concerns. Pt denies any present sx. Pt is here strictly to discuss the results of the procedure. 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 Denies any issues with anesthesia in the past.? Denies any history of sleep apnea.? No history infectious diseases in the past or present.? Not on any anticoagulation therapy.? No family or personal history of colon cancer or polyps.? Patient denies melena, hematochezia, unintentional weight loss or ribbon like stools.? Discussed at length the pre-procedure,? prep, diet & medications as well as what to expect prior, during and after the procedure.?? Stressed the importance of good bowel prep. ?Recommended the use of Vaseline or Calmoseptine OTC & baby wipes with bowel movements to promote comfort.? ?Patient verbalizes understanding and agrees to plan of care.? She was given the opportunity to ask questions and all questions answered.? We will see her after the procedure.? Plan Medications New bisacodyl (Dulcolax (bisacodyl)) take 4 tabs at noon the day before your colonoscopy 20 mg (4 x 5 mg) PO ONCE 1 day 4 tabs 0RF Z12.11 polyethylene glycol 3350 (Miralax) As directed by gastroenterology department at [facility] 238 grams PO ONCE 238 grams 0RF Z12.11 COLONOSCOPY: Findings: Terminal Ileum-normal Cecum:normal Right sided retroflexion- normal Ascending Colon: normal Transverse Colon -normal Descending Colon: x 2 flatg polyps 6-8 mm, raised with eleview and removed with cold snare Sigmoid Colon: normal Rectum: Retroflexion with small internal hemorrhoids seen, grade I Anorectum - normal Intervention: cold snare and eleview injection Colon preparation: [place] Bowel Preparation Scale Right colon; 2 Transverse colon: 2 Left colon; 2 (0 = Unprepared colon segment with mucosa not seen due to solid stool that cannot be cleared. 1 = Portion of mucosa of the colon segment seen, but other areas of the colon segment not well seen due to staining, residual stool and/or opaque liquid. 2 = Minor amount of residual staining, small fragments of stool and/or opaque liquid, but mucosa of colon segment seen well. 3 = Entire mucosa of colon segment seen well with no residual staining, small fragments of stool or opaque liquid) Impression and Post Procedure Diagnosis: colon polyps internal hemorrhoids Plan: High fiber diet leaflet Avoid straining at stool, epsom salts and sitz bath, anusol supps or cream Repeat Colonoscopy in 5 years if adenomatous polyps, 10 yrs if hyperplastic or earlier if clinically indicated PATHOLOGY RESULTS: Diagnosis Colon, descending, polypectomy x2: Tubular adenoma (1); negative for high-grade dysplasia TODAY'S VISIT Patient is here today for follow-up and to discuss colonoscopy results. Patient denies any ill effects from the prep, anesthesia or procedure itself. Patient reports to be feeling well. Denies any melena, hematochezia. Colonoscopy results as well as biopsy results discussed with patient. Tubular adenoma x 2 found in descending colon without high-grade dysplasia or carcinoma. Recommendation was made for patient to repeat colonoscopy in 5 years. Patient denies any GI concerning symptoms. Reports to be moving his bowels well without any issues. Patient denies any dyspepsia, dysphagia or odynophagia. [facility] Medical History (Updated 04/06/24 @ 21:23 by Melonie Perales ASSISTANT RESEARCH SCIENTIST-) Tubular adenoma of colon Enlarged heart Scrotal cyst ADHD ADD (attention deficit disorder) No pertinent past medical history Surgical History [employer] [place] teeth removed Family History Mother History of sinus problem Maternal Grandfather Metastatic squamous cell carcinoma involving throat with unknown primary site Maternal Grandmother Stomach cancer Social History Household Members: Significant Other Housing: Apartment Patient Tobacco Use Status: Former Tobacco user e-Cigarette/Vaping Use: Never Used Substance Use Type: Marijuana Current occupational status: employed 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 Cognitive needs: No Hearing needs: No Vision needs: No Review of Systems Const Denies weight gain and Denies weight loss ENT Reports no additional complaints, Denies dysphagia and Denies odynophagia Card Reports no additional complaints Resp Reports no additional complaints GI Denies abdominal pain, Denies belching, Denies melena, Denies bloating, Denies change in bowel habits, Denies dysphagia, Denies excessive flatus, Denies dyspepsia, Denies heartburn, Denies diarrhea, Denies loose stools, Denies nausea, Denies odynophagia and Denies vomiting Reports no additional complaints Musc Reports no additional complaints Neuro Reports no additional complaints Psych Reports no additional complaints Endo Reports no additional complaints Physical Exam Vital Signs: Last Vital Signs Pulse 60 03/30/24 14:54 BP 116/62 03/30/24 14:54 Pulse Ox 97 03/30/24 14:54 Oxygen Delivery Method Room Air 03/30/24 14:54 BMI result Body Mass Index 22.1 Const General: healthy appearing, no acute distress and well developed Nutritional Appearance: well nourished Orientation/consciousness: patient oriented x3 Resp Effort & Inspection: normal respiratory effort, able to speak in complete sentences, no tracheal deviation and symmetric chest movement Auscultation: clear to auscultation bilaterally Cardio Rate: regular rate GI Inspection: Yes normal to inspection and No distended Palpation (GI): Soft to palpation, not firm, nontender and No hepatosplenomegaly present Auscultation: normal bowel sounds General: Yes no CVA tenderness Back/Spine/Pelvis Back: no CVA tenderness Skin General skin exam: elasticity normal, turgor normal and dry skin Neuro General: patient oriented x3 Psych Appearance: grossly normal Mental Status: mental status grossly normal Assessment & Plan Assessment & Plan (1) Tubular adenoma of colon: Code(s): D12.6 - Benign neoplasm of colon, unspecified Category: Medical (2) Status post colonoscopy: Code(s): Z98.890 - Other specified postprocedural states Plan Two small tubular adenomas without high-grade dysplasia or carcinoma found in descending colon. Patient will repeat colonoscopy in 5 years, sooner if clinically necessary. Currently patient has no GI concerning symptoms and will follow-up with us on as-needed basis. He is agreeable to this plan and verbalizes understanding of instructions. He was given the opportunity to ask questions and all questions answered. Thank you for allowing me to participate in his care Coding Level of Care Code Est Pt Level 3 (32687) Diagnoses Tubular adenoma of colon D12.6 Status post colonoscopy Z98.890 Time Spent (min) 25 Comment 15 minutes spent with patient and additional 10 minutes spent reviewing his records
[2024-03-30 14:54] VITALS: BP 116/62; PULSE 60; O2SAT 97; BMI 22.1
== END 2024-03-30 15:52 | disposition home or self-care (01) ==
PROVIDERS: PCP Family Medicine; Visit Provider Nurse Practitioner Family
DX: D12.6 Benign neoplasm of colon, unspecified (principal); Z98.890 Other specified postprocedural states
CPT/HCPCS: 99213

== ENCOUNTER → 2024-03-30 14:38 | Outpatient (BNVA) | payer BC, SELFPAY | PROVIDERS: PCP Family Medicine; Visit Provider Nurse Practitioner Family ==

== ENCOUNTER 2024-04-30 07:33 | Outpatient (REF) | payer BC, SELFPAY ==
[2024-04-30 11:46] LABS: Estimated Average Glucose 100 mg/dL; Hemoglobin A1c % 5.1 % (<6.0)
[2024-04-30 11:50] LABS: Alanine Aminotransferase 14 U/L (0-40); Albumin Level 4.3 g/dL (3.5-5.0); Alkaline Phosphatase 87 U/L (39-117); Anion Gap 11 (12-20); Aspartate Amino Transferase 17 U/L (5-37); Bilirubin Total 0.3 mg/dL (0.0-1.0); Blood Urea Nitrogen 11 mg/dL (9-16); Calcium 9.1 mg/dL (8.4-10.2); Carbon Dioxide 30 mmol/L (22-29); Chloride 105 mmol/L (96-108); Cholesterol 236 mg/dL (<200); Estimated Glomerular Filt Rate > 60; Glucose Fasting 105 mg/dL (60-99); HDL Cholesterol 63 mg/dL (>40); LDL Cholesterol Calculated 151 mg/dL (<100); Potassium 4.2 mmol/L (3.3-5.1); Sodium 142 mmol/L (135-145); Total Protein 6.8 g/dL (6.5-8.0); Triglycerides 114 mg/dL (<150)
== END 2024-04-30 07:34 | disposition home or self-care (01) ==
LOC: HO.WFDLDS 07:33
PROVIDERS: Visit Provider Family Medicine
DX: Z00.00 Encounter for general adult medical examination without abnormal findings (principal); E78.5 Hyperlipidemia, unspecified; R73.01 Impaired fasting glucose
CPT/HCPCS: 36415; 80053; 80061; 83036

== ENCOUNTER 2024-05-01 12:56 | Outpatient (AMB) | payer BC, SELFPAY ==
--- NOTE | 2024-05-01 13:06 | A.OFFVIS_ITS ---
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 According to him, he is generally very healthy with no limitations. He is very active and he can walk around 5-8 miles a day and he does it almost every day due to his work. He has no limitation whatsoever and he states that on some days he has done almost 27 flights of stairs without a break and still felt fine. Has never felt symptoms like angina. He was weighing somewhere in the 170s to 180s but then by changing his diet and doing healthy living, he dropped weight. EKG had shown bradycardia which led to an echocardiogram and that showed mild chamber enlargement of the ventricles as well as left atrium. Hence he is referred here. Otherwise, he does not have any known cardiac history. [facility] Medical History (Updated 05/01/24 @ 14:24 by Nhan Gonzalez MD) Tubular adenoma of colon Enlarged heart Scrotal cyst ADHD ADD (attention deficit disorder) No pertinent past medical history Surgical History [place] teeth removed Family History Mother History of sinus problem Maternal Grandfather Metastatic squamous cell carcinoma involving throat with unknown primary site Maternal Grandmother Stomach cancer Social History Household Members: Significant Other Housing: Apartment Patient Tobacco Use Status: Former Tobacco user e-Cigarette/Vaping Use: Never Used Substance Use Type: Marijuana Current occupational status: employed 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 Cognitive needs: No Hearing needs: No Vision needs: No Review of Systems Const Denies chills, Denies daytime sleepiness, Denies fatigue, Denies fever(s), Denies poor appetite, Denies snoring, Denies stops breathing during sleep, Denies weakness, Denies weight gain and Denies weight loss Eyes Denies loss of vision ENT Denies dizziness and Reports hearing loss Card Denies chest pain, Denies irregular heart rhythm, Denies claudication, Denies leg edema, Denies lightheadedness, Denies palpitations, Denies dyspnea on exertion and Denies orthopnea Resp Denies cough, Denies excessive phlegm production, Denies dyspnea on exertion, Denies snoring and Denies wheezing GI Denies abdominal pain, Denies hematochezia, Denies change in bowel habits, Denies nausea and Denies vomiting Denies dysuria and Denies urinary frequency Musc Denies arthralgias, Denies muscle weakness, Denies numbness and Denies other Skin/Breast Denies nail changes and Denies rash Neuro Denies Abnormal speech present, Denies dizziness, Denies loss of vision, Denies memory loss, Denies numbness and Denies weakness Psych Denies depression and Denies memory loss Endo Denies fatigue and Denies palpitations H[place]ham/Lymph Denies easy bruising Aller/Immun Denies wheezing Physical Exam Vital Signs: Last Vital Signs Pulse 48 L 05/01/24 13:21 BP 108/54 L 05/01/24 13:21 BMI result Body Mass Index 21.7 Const General: comfortable and no acute distress Orientation/consciousness: patient oriented x3 HEENT Other: Unremarkable Head: Yes normal to inspection Neck Neck: Yes normal visual inspection Chest Chest palpation & inspection: normal inspection of the chest Resp Auscultation: clear to auscultation bilaterally Cardio Palpation: normal PMI Heart sounds: S1 normal heart sound present, S2 normal heart sound present, no gallops, no murmurs and no rubs GI Palpation (GI): Soft to palpation Back/Spine/Pelvis Other: unremarkable Skin General skin exam: no rashes or lesions noted Neuro General: patient oriented x3 Speech: No Abnormal speech present Extrem General: Yes normal to inspection Psych Mental Status: mental status grossly normal Office Procedures EKG Details: EKG with sinus bradycardia at 48/Min; no significant ST-T changes and otherwise unremarkable[place] [id number], Complete Assessment & Plan Assessment & Plan (1) Bradycardia: Code(s): R00.1 - Bradycardia, unspecified Category: Medical Plan: EKG with sinus bradycardia. Suspect all physiological. Could be related to high levels of baseline physical activity. We discussed about symptoms of profound bradycardia including dizziness and presyncope. If any such instance, he will contact us. At this time, no specific management for this. There is no evidence of conduction system disease. (2) Enlarged heart: Code(s): I51.7 - Cardiomegaly Category: Medical Plan: In the echocardiogram, LVEDD 5.8 cm. LVEF preserved at 65%. Normal peak global longitudinal strain. RV size is also mildly increased. Increased stroke volume based on elevated LVOT VTi. Mildly dilated LA. Overall, findings possibly related to athletic lifestyle but not clear. With normal peak global longitudinal strain, reassuring. Clinically, he has got absolutely no symptoms. We can recheck in about 6 months. Discussed with patient. Orders: Orders CA echo transthoracic complete 6 Months I51.7 - Cardiomegaly Coding Level of Care Code New Pt Level 3 (94134) Diagnoses Bradycardia R00.1 Enlarged heart I51.7 CPT Codes EKG - CPT: 69292-[id number], Complete ([id number])
[2024-05-01 13:21] VITALS: BP 108/54; PULSE 48; BMI 21.7
== END 2024-05-01 13:49 | disposition home or self-care (01) ==
PROVIDERS: PCP Family Medicine; Visit Provider Internal Medicine
DX: R00.1 Bradycardia, unspecified (principal); I51.7 Cardiomegaly
CPT/HCPCS: 93010; 99213

== ENCOUNTER → 2024-05-01 12:56 | Outpatient (BNVA) | payer BC, SELFPAY | PROVIDERS: PCP Family Medicine; Visit Provider Internal Medicine | DX: I51.7 Cardiomegaly (principal); R00.1 Bradycardia, unspecified | CPT/HCPCS: 93005 ==

== ENCOUNTER 2024-05-07 14:12 | Outpatient (AMB) | payer BC, SELFPAY ==
[2024-05-07 14:17] VITALS: BP 114/68; PULSE 57; O2SAT 97; BMI 22.3
--- NOTE | 2024-05-07 14:17 | MHC.PC.OV ---
Vital Signs 05/07/24 14:17 Height 5 ft 10 in Weight 155 lb 2 oz BMI 22.3 BP 114/68 Blood Pressure Location Rt brachial Position Sitting Pulse 57 Pulse Source Pulse Oximeter Pulse Oximetry (%) 97 Oxygen Delivery Method Room Air Intake Visit Reasons: f/u HLD Intake Note: Speedy is a 58 year old male who presents to the office today for a follow up HLD. Pt states he is overall feeling well. Allergies No Known Allergies Allergy (Verified 05/07/24 14:19) Medication List - Last Reconciled 05/07/24 by Luis Guevara MD fluticasone propionate 50 mcg/actuation (Flonase Allergy Relief) 1 spray intranasal Q12H 30 days losartan 25 mg PO DAILY 90 days Tobacco use date assessed: 05/07/24 Dental Screening Dental Screen Date: 05/07/24 Did you have a dental visit in the last 12 months?: Yes Did you have a dental problem in the last 6 months where you did not have access to dental care?: No Was dental information given to patient?: Patient has dentist HPI f/u HLD HPI Details 58 y/o male presents to f/u hypertension, hyperlipidemia, and elevated fasting blood sugars. Had started him on losartan. Had encouraged lifestyle changes for lipids and elevated sugars. Referred him to Cardiology for strong FHx of heart disease. Labs were drawn 04/30/24. Reviewed labs with pt. A1c 5.1%. Triglycerides 114. TC 236. LDL 151. HDL 63. Blood pressure today 114/68. He is on losartan 25mg daily. [facility] Medical History Tubular adenoma of colon Enlarged heart Scrotal cyst ADHD ADD (attention deficit disorder) No pertinent past medical history Surgical History [place] teeth removed Family History Mother History of sinus problem Maternal Grandfather Metastatic squamous cell carcinoma involving throat with unknown primary site Maternal Grandmother Stomach cancer Social History Household Members: Significant Other Housing: Apartment Patient Tobacco Use Status: Former Tobacco user e-Cigarette/Vaping Use: Never Used Substance Use Type: Marijuana Current occupational status: employed 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 1. Little interest or pleasure in doing things: not at all 2. Feeling down, depressed, or hopeless: not at all 3. Trouble falling or staying asleep, or sleeping too much: not at all 4. Feeling tired or having little energy: not at all 5. Poor appetite or overeating: not at all 6. Feeling bad about yourself - or that you are a failure or have let yourself or your family down: not at all 7. Trouble concentrating on things, such as reading the newspaper or watching television: not at all 8. Moving or speaking so slowly that other people could have noticed. Or the opposite - being so fidgety or restless that you have been moving around a lot more than usual: not at all 9. Thoughts that you would be better off or of hurting yourself in some way: not at all Total score: 0 Depression Screening Interpretation: Negative Depression Screening Done: Yes Source: Developed by Drs. Sarmad Bass, Humaira Brown, Larry Mckay and colleagues, with an educational sally from [email or web address]. Thrive Questionnaire Date Thrive assessed: 02/02/24 I am a: Patient What is your living situation today?: I have a steady place to live Within the past 12 months, did the food you bought not last and you didn't have the money to get more?: Never true Within the past 12 months, did you worry whether your food would run out before you got money to buy more?: Never true Do you have trouble paying for medicines?: No Do you have trouble getting transportation to medical appointments?: No Do you have trouble paying your heating and electricity bill?: No Do you have trouble taking care of your child, family member or friend?: No Do you have trouble with day-to-day activities such as bathing, preparing meals, shopping, managing finances, etc.?: No Are you currently unemployed and looking for a job?: No Are you interested in more education?: No THRIVE Score: 0 AUDIT C Alcohol Use Questionnaire (AUDIT-C) 1. How often do you have a drink containing alcohol?: Never 3. How often do you have six or more drinks on one occasion?: Never Total Score: 0 CORRIE-7 AMB Questionnaire CORRIE-7 Date CORRIE - 7 assessed: 02/02/24 Feeling nervous, anxious, or on edge: 0 = Not at all Not being able to stop or control worryin = Not at all Worrying too much about different things: 0 = Not at all Trouble relaxin = Not at all Being so restless that it is hard to sit still: 0 = Not at all Becoming easily annoyed or irritable: 0 = Not at all Feeling afraid as if something awful might happen: 0 = Not at all Total CORIRE-7 score (0-4 normal; 5-9 mild; 10-14 moderate; 15-21 severe): 0 Source: Developed by Drs. Sarmad Bass, Humaira Brown, Larry Mckay and colleagues, with an educational sally from [email or web address]. Review of Systems Const Denies chills, Denies fatigue, Denies fever(s), Denies headache(s) and Denies weakness ENT Denies dizziness and Denies headache(s) Card Denies chest pain, Denies lightheadedness, Denies dyspnea and Denies other (Palpitations) Resp Denies cough, Denies dyspnea, Denies wheezing and Denies other ( shortness of breath) Musc Denies numbness and Denies tingling Neuro Denies dizziness, Denies headache(s), Denies numbness, Denies tingling, Denies paresthesias and Denies weakness Psych Denies anxiety and Denies depression Endo Denies fatigue Aller/Immun Denies wheezing Physical exam (Primary Care) Vital Signs: Last Vital Signs Pulse 57 05/07/24 14:17 BP 114/68 05/07/24 14:17 Pulse Ox 97 05/07/24 14:17 Oxygen Delivery Method Room Air 05/07/24 14:17 BMI result Body Mass Index 22.3 Tobacco/Smoking Status: Tobacco use Status Tobacco use date assessed 05/07/24 05/07/24 14:21 Patient Tobacco Use Status Former Tobacco user 05/07/24 14:21 e-Cigarette/Vaping Use Never Used 05/07/24 14:21 PHQ-9: PHQ-9 Score PHQ-9: Total score 0 05/07/24 14:28 Depression Screening Interpretation: Negative Thrive Assessment: Date of Thrive Assessment Date Thrive assessed 02/02/24 05/07/24 14:21 Const General: no acute distress and well developed Nutritional Appearance: well nourished Orientation/consciousness: patient oriented x3 HENMT Head: Yes normocephalic and Yes atraumatic Eyes General: appearance normal, both eyes and all related structures Pupils: Equal, round and reactive pupils present EOM: EOMs intact bilaterally Resp Effort & Inspection: normal respiratory effort Auscultation: clear to auscultation bilaterally Cardio Rate: regular rate Rhythm: regular rhythm Heart sounds: S1 normal heart sound present, S2 normal heart sound present, no gallops, no murmurs and no rubs Neuro General: patient oriented x3 and gait normal Cranial nerves: Yes Equal, round and reactive pupils present Psych Affect: normal affect Assessment and Plan Assessment & Plan (1) Hypertension: Code(s): I10 - Essential (primary) hypertension Plan: Blood?pressure?is?well?controlled.??Goal?is?less?than?140/90 Continue?losartan (2) Hyperlipidemia: Code(s): E78.5 - Hyperlipidemia, unspecified Plan: LDL?cholesterol?is?too?high. Starting?atorvastatin?20?mg?daily Continue?diet?low?in?saturated?fats?and?cholesterol Will?recheck?in?a?few?months (3) Elevated fasting glucose: Code(s): R73.01 - Impaired fasting glucose Plan: Mildly?elevated?fasting?blood?sugar.??A1c?still?within?normal?range Encouraged?diet?lower?sugars?and?starches Continue?exercise?and?weight?control Will?recheck?with?next?blood?draw?and?advise?patient (4) Enlarged heart: Code(s): I51.7 - Cardiomegaly Plan: Was?seen?by?Cardiology?and?had?an?echocardiogram No?significant?concerns?by?Cardiology?and?suspect?athletic?lifestyle?is?the?underlying?cause Asymptomatic He?does?have?a?follow-up?echocardiogram?six-month Follow-up?with?Cardiology?as?recommended (5) Screening for colon cancer: Code(s): Z12.11 - Encounter for screening for malignant neoplasm of colon Plan: Recent?colonoscopy?resulted?in?polyps?and?a?recommendation?to?follow-up?in?5?years Follow-up?with?GI?as?recommended Orders: Orders Lipid Panel Today E78.5 - Hyperlipidemia, unspecified, Z00.00 - Encounter for general adult medical examination without abnormal findings Comprehensive [place]. Panel Fast Today E78.5 - Hyperlipidemia, unspecified, Z00.00 - Encounter for general adult medical examination without abnormal findings Medications: New atorvastatin 20 mg PO BEDTIME 90 days 90 tabs 3RF Refilled losartan 25 mg PO DAILY 90 days 90 tabs 2RF Coding Level of Care Code Est Pt Level 4 (71248) Diagnoses Hypertension I10 Hyperlipidemia E78.5 Elevated fasting glucose R73.01 Enlarged heart I51.7 Screening for colon cancer Z12.11
== END 2024-05-07 14:48 | disposition home or self-care (01) ==
PROVIDERS: PCP Family Medicine; Visit Provider Family Medicine
DX: I10 Essential (primary) hypertension (principal); E78.5 Hyperlipidemia, unspecified; R73.01 Impaired fasting glucose; I51.7 Cardiomegaly; Z12.11 Encounter for screening for malignant neoplasm of colon
CPT/HCPCS: 99214

== ENCOUNTER 2024-08-06 07:33 | Outpatient (REF) | payer BC, SELFPAY ==
[2024-08-06 12:31] LABS: Alanine Aminotransferase 31 U/L (0-40); Albumin Level 4.2 g/dL (3.5-5.0); Alkaline Phosphatase 86 U/L (39-117); Anion Gap 9 (12-20); Bilirubin Total 0.6 mg/dL (0.0-1.0); Blood Urea Nitrogen 12 mg/dL (9-16); Calcium 9.8 mg/dL (8.4-10.2); Carbon Dioxide 30 mmol/L (22-29); Chloride 107 mmol/L (96-108); Cholesterol 164 mg/dL (<200); Estimated Glomerular Filt Rate > 60; Glucose Fasting 104 mg/dL (60-99); HDL Cholesterol 69 mg/dL (>40); LDL Cholesterol Calculated 79 mg/dL (<100); Potassium 4.2 mmol/L (3.3-5.1); Sodium 142 mmol/L (135-145); Total Protein 6.5 g/dL (6.5-8.0); Triglycerides 84 mg/dL (<150)
[2024-08-06 12:55] LABS: Aspartate Amino Transferase 23 U/L (5-37)
== END 2024-08-06 07:34 | disposition home or self-care (01) ==
LOC: HO.WFDLDS 07:33
PROVIDERS: Visit Provider Family Medicine
DX: Z00.00 Encounter for general adult medical examination without abnormal findings (principal); E78.5 Hyperlipidemia, unspecified
CPT/HCPCS: 36415; 80053; 80061

== ENCOUNTER 2024-08-13 14:20 | Outpatient (AMB) | payer BC, SELFPAY ==
--- NOTE | 2024-08-13 14:33 | A.OFFPC_ITS ---
Vital Signs 08/13/24 14:36 Height 5 ft 10 in Weight 156 lb 6 oz BMI 22.4 BP 106/58 L Blood Pressure Location Rt brachial Respiration 14 Pulse 48 L Pulse Source Pulse Oximeter Temp 97.7 F Temp Source Temporal Artery Scan Pulse Oximetry (%) 97 Oxygen Delivery Method Room Air Intake Visit Reasons: f/u hyperlipidemia Intake Note: lab review Allergies No Known Allergies Allergy (Verified 08/13/24 14:34) Tobacco use date assessed: 05/07/24 Dental Screening Dental Screen Date: 05/07/24 HPI f/u hyperlipidemia HPI0 Details 59 y/o male presents to f/u HLD and mild ly elevated fasting glucose. Had started him on artovastatin. Blood pressure today 99/54, 48p. He is on losartan 25mg daily. He did note some symptoms a couple weeks ago. He is busy and physically active at his job. Labs drawn 08/06/24. Reviewed labs with pt. Fasting glucose 104. Last A1c in April 5.1%. Triglycerides 84. TC improved from 236 to 164. LDL 151 to 79. HDL 69. [facility] Medical History Tubular adenoma of colon Enlarged heart Scrotal cyst ADHD ADD (attention deficit disorder) No pertinent past medical history Surgical History [place] teeth removed Family History Mother History of sinus problem Maternal Grandfather Metastatic squamous cell carcinoma involving throat with unknown primary site Maternal Grandmother Stomach cancer Social History Household Members: Significant Other Housing: Apartment Patient Tobacco Use Status: Former Tobacco user e-Cigarette/Vaping Use: Never Used Substance Use Type: Marijuana Current occupational status: employed 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 1. Little interest or pleasure in doing things: not at all 2. Feeling down, depressed, or hopeless: not at all 3. Trouble falling or staying asleep, or sleeping too much: not at all 4. Feeling tired or having little energy: not at all 5. Poor appetite or overeating: not at all 6. Feeling bad about yourself - or that you are a failure or have let yourself or your family down: not at all 7. Trouble concentrating on things, such as reading the newspaper or watching television: not at all 8. Moving or speaking so slowly that other people could have noticed. Or the opposite - being so fidgety or restless that you have been moving around a lot more than usual: not at all 9. Thoughts that you would be better off or of hurting yourself in some way: not at all Total score: 0 Source: Developed by Drs. Sarmad Bass, Humaira Brown, Larry Mckay and colleagues, with an educational sally from [employer]. Thrive Questionnaire Date Thrive assessed: 02/02/24 I am a: Patient What is your living situation today?: I have a steady place to live Within the past 12 months, did the food you bought not last and you didn't have the money to get more?: I choose not to answer this question Within the past 12 months, did you worry whether your food would run out before you got money to buy more?: I choose not to answer this question Do you have trouble paying for medicines?: I choose not to answer this question Do you have trouble getting transportation to medical appointments?: No Do you have trouble paying your heating and electricity bill?: No Do you have trouble taking care of your child, family member or friend?: No Do you have trouble with day-to-day activities such as bathing, preparing meals, shopping, managing finances, etc.?: No Are you currently unemployed and looking for a job?: No Are you interested in more education?: No Please select the resources that you would like help with: None Currently or been in a relationship where the following occur: I choose not to answer THRIVE Score: 0 AUDIT C Alcohol Use Questionnaire (AUDIT-C) 1. How often do you have a drink containing alcohol?: Never Total Score: 0 CORRIE-7 AMB Questionnaire CORRIE-7 Date CORRIE - 7 assessed: 02/02/24 Feeling nervous, anxious, or on edge: 1 = Several days Not being able to stop or control worryin = Several days Worrying too much about different things: 1 = Several days Trouble relaxin = Several days Being so restless that it is hard to sit still: 1 = Several days Becoming easily annoyed or irritable: 0 = Not at all Feeling afraid as if something awful might happen: 0 = Not at all Total CORRIE-7 score (0-4 normal; 5-9 mild; 10-14 moderate; 15-21 severe): 5 Source: Developed by Drs. Sarmad Bass, Humaira Brown, Larry Mckay and colleagues, with an educational sally from [employer]. Review of Systems Const Denies chills, Denies fatigue, Denies fever(s), Denies headache(s) and Denies weakness ENT Denies dizziness and Denies headache(s) Card Denies chest pain, Denies lightheadedness, Denies dyspnea and Denies other (Palpitations) Resp Denies cough, Denies dyspnea, Denies wheezing and Denies other ( shortness of breath) Musc Denies numbness and Denies tingling Neuro Denies dizziness, Denies headache(s), Denies numbness, Denies tingling, Denies paresthesias and Denies weakness Psych Denies anxiety and Denies depression Endo Denies fatigue Aller/Immun Denies wheezing Physical exam (Primary Care) Vital Signs: Last Vital Signs Temp 97.7 F 08/13/24 14:36 Pulse 48 L 08/13/24 14:36 Resp 14 08/13/24 14:36 BP 99/54 L 08/13/24 14:36 Pulse Ox 97 08/13/24 14:36 Oxygen Delivery Method Room Air 08/13/24 14:36 BMI result Body Mass Index 22.4 Tobacco/Smoking Status: Tobacco use Status Tobacco use date assessed 05/07/24 08/13/24 14:39 Patient Tobacco Use Status Former Tobacco user 08/13/24 14:39 e-Cigarette/Vaping Use Never Used 08/13/24 14:39 PHQ-9: PHQ-9 Score PHQ-9: Total score 0 08/13/24 14:54 Thrive Assessment: Date of Thrive Assessment Date Thrive assessed 02/02/24 08/13/24 14:39 Currently or been in a relationship where the following occur: I choose not to answer Const General: no acute distress and well developed Nutritional Appearance: well nourished Orientation/consciousness: patient oriented x3 [facility] Head: Yes normocephalic and Yes atraumatic Eyes General: appearance normal, both eyes and all related structures Pupils: Equal, round and reactive pupils present EOM: EOMs intact bilaterally Resp Effort & Inspection: normal respiratory effort Auscultation: clear to auscultation bilaterally Cardio Rate: regular rate Rhythm: regular rhythm Heart sounds: S1 normal heart sound present, S2 normal heart sound present, no gallops, no murmurs and no rubs Neuro General: patient oriented x3 and gait normal Cranial nerves: Yes Equal, round and reactive pupils present Psych Affect: normal affect Coding Level of Care Code Est Pt Level 4 (59816) Diagnoses Hypertension I10 Hyperlipidemia E78.5 Elevated fasting glucose R73.01 Assessment & Plan Assessment & Plan (1) Hypertension: Code(s): I10 - Essential (primary) hypertension Category: Medical Plan: Blood?pressure?is?controlled.??Goal?is?less?than?140/90 He?had?lost?significant?amounts?of?weight?and?notes?that?he?was?dizzy?once - probably?some?dehydration. Encouraged?patient?to?hydrate?well He?will?let?me?know?if?he?has?anymore?dizziness. ?Would?decrease?losartan (2) Hyperlipidemia: Code(s): E78.5 - Hyperlipidemia, unspecified Category: Medical Plan: Lipids?now?very?well?controlled?on?new?diet?and?atorvastatin?20?mg?daily Continue?current?medication (3) Elevated fasting glucose: Code(s): R73.01 - Impaired fasting glucose Category: Medical Plan: Mildly?elevated?fasting?blood?sugar?and?his?A1c?in?April?was?5.1%;?normal?range. Fasting?blood?sugar?still?mildly?elevated?in?same?range. We?can?check?this?at?his?next?blood?draw Orders: Orders Comprehensive [place]. Panel Fast Today Z00.00 - Encounter for general adult medical examination without abnormal findings Prostate Specific Antigen Scr Today Z12.5 - Encounter for screening for malignant neoplasm of prostate UA and rflx microscopic Today Z00.00 - Encounter for general adult medical examination without abnormal findings Hemoglobin A1c Today R73.01 - Impaired fasting glucose Complete Blood Count Auto Diff Today Z00.00 - Encounter for general adult medical examination without abnormal findings Lipid Panel Today Z00.00 - Encounter for general adult medical examination without abnormal findings Microalbumin, Random (w Creat) Today I10 - Essential (primary) hypertension TSH reflex Free T4 Today Z00.00 - Encounter for general adult medical examination without abnormal findings
[2024-08-13 14:36] VITALS: BP 106/58; PULSE 48; RESP 14; TEMP 36.5; O2SAT 97; BMI 22.4
== END 2024-08-13 15:08 | disposition home or self-care (01) ==
LOC: HO.HMCFM 14:21
PROVIDERS: PCP Family Medicine; Visit Provider Family Medicine
DX: I10 Essential (primary) hypertension (principal); E78.5 Hyperlipidemia, unspecified; R73.01 Impaired fasting glucose

== ENCOUNTER → 2024-08-13 14:20 | Outpatient (BNVA) | payer BC, SELFPAY | PROVIDERS: PCP Family Medicine; Visit Provider Family Medicine ==

== ENCOUNTER → 2024-10-18 07:41 | Outpatient (REF) | payer BC, SELFPAY ==
--- NOTE | 2024-10-18 07:44 | CA_ITS ---
Transthoracic Echocardiogram Patient (Last, First, Middle): Speedy Zhou, Gender: Male Date of : 1965 Age: 59 Procedure Date: 10/18/2024 Procedure Type: Transthoracic Echocardiogram Location: OP Height: 177.8 cm Weight: 68.49 kg BSA: 1.85 m2 Heart Rate: bpm BP: 126 / 72 mmHg School Physical Therapist: TO Referring MD: Nhan Gonzalez MD Apiculturist: Luis Salmeron MD Symptoms: I51.7 - Cardiomegaly Study Quality: Adequate ECG Rhythm: Sinus Conclusions: - 1. Normal LV systolic function with LV ejection fraction of 60 65% with mildly dilated left ventricular cavity 2. Mildly dilated left atrium 3. Normal cardiac valvular Dopplers 4. No pericardial effusion Findings Left Ventricle Mildly increased left ventricular cavity size. There is normal left ventricular wall thickness. The left ventricular systolic function is normal. The visually estimated ejection fraction is between 60-65%. Spectral Doppler is indicative of a normal filling pattern. Peak GLS is 23.3%, within normal limits. Right Ventricle Normal right ventricular cavity size and systolic function. Atria The left atrium is mildly dilated. There is no evidence of interatrial shunt. The right atrium is normal in size. Aortic Valve Normal aortic valve structure and function. There is no aortic valve stenosis. There is no aortic valve regurgitation. Mitral Valve Normal mitral valve structure and function. There is trace mitral valve regurgitation. There is no mitral valve stenosis. Pulmonic Valve The pulmonic valve is likely normal. Tricuspid Valve Likely normal tricuspid valve structure and function. Tricuspid regurgitation envelope is inadequate for calculation of right ventricular systolic pressure. Normal right atrial pressure. Great Vessels All visible segments of the aorta are normal in size. The pulmonary artery was not well visualized. There is no dilatation of the ascending aorta measuring 3.30 cm. Venous The inferior vena cava is normal in size and collapses greater than 50% with inspiration. Pericardium/Pleural There is no evidence of pericardial effusion. Prior Study Comparison No significant change compared to prior study dated: 09/21/2023. Measurements 2D Linear Measurements IVSd: 0.94 0.6-0.9/0.6-1.0 cm LVIDd: 5.75 3.9-5.3/4.2-5.9 cm LVIDd Index: 3.11 2.4-3.2/2.2-3.1 cm/m2 LVPWd: 0.82 0.7-1.1 cm LA Diam: 3.90 2.7-3.8/3.0-4.0 cm LAIDs Index: 2.11 1.5-2.3 cm/m2 LV Mass: 241.74 67-162/88-224 g LV Mass Index: 130.67 43-95/49-115 g/m2 LVOT Diam: 2.30 3.0+(-)1.3 cm 2D Systolic Function EF 4C: 64.90 >55% EF 2C: 59.10 >55% EF BiP: 62.60 >55% Mitral Valve MV Pk E: 0.51 MV PK A: 0.40 MV Decel Time: 333.00 E/A: 1.30 E'Lateral: 7.62 E'Medial: 8.05 E/E' Med: 6.30 E/E' Lat: 6.70 PHT: 97.00 MVA PHT: 2.27 Decel Collin: 1.53 Aortic Valve AoV Pk Walter: 1.49 AoV Mn Walter: 1.01 AoV VTI: 0.36 AoV Pk Grad: 9.00 Aov Mn Grad: 5.00 URVASHI Cont.VTI: 3.03 LVOT LVOT Pk Walter: 1.13 LVOT Mn Walter: 0.72 LVOT VTI: 0.26 LVOT Pk Grad: 5.00 LVOT Mn Grad: 2.00 LVOT Diam: 2.30 LVOT Area: 4.15 Diastolic Function MV Pk E: 0.51 MV Pk A: 0.40 E/A: 1.30 E'Medial: 8.05 E/E' Med: 6.30 E' Laterial: 7.62 E/E' Lat: 6.70 Right Ventricle TAPSE (mm): 33.00 TVS' Walter: 12.90 Tricuspid Valve RA Press: 8.00 Great Vessels Aorta Sinus of Valsalva: 3.56 2.0-3.5 cm Ao Asc: 3.30 2.1-3.4 cm Ao Arch: 2.80 Updated in Other Vendor System with Status of Final Luis Salmeron MD electronically signed on 10/19/2024 2:59:59 PM with status of Final
== END ==
LOC: HO.CARD 07:41
PROVIDERS: PCP Family Medicine; Visit Provider Internal Medicine
DX: I51.7 Cardiomegaly (principal)
CPT/HCPCS: 93306; 93356

== ENCOUNTER → 2024-10-18 07:44 | Outpatient (BNV) | payer BC, SELFPAY | PROVIDERS: PCP Family Medicine; Visit Provider Internal Medicine Cardiovascular Disease | DX: I51.7 Cardiomegaly (principal) | CPT/HCPCS: 93306; 93356 ==

== ENCOUNTER 2024-11-01 13:34 | Outpatient (AMB) | payer BC, SELFPAY ==
[2024-11-01 13:40] VITALS: BP 108/60; PULSE 56; BMI 22.5
--- NOTE | 2024-11-01 13:40 | MHC.OFFVIS ---
Vital Signs 11/01/24 13:40 Height 5 ft 10 in Weight 156 lb 8.451 oz BMI 22.5 BP 108/60 Blood Pressure Location Lt brachial Position Sitting Pulse 56 Pulse Source Pulse Oximeter Intake Visit Reasons: 6 mth s/p echo Allergies No Known Allergies Allergy (Verified 08/13/24 14:34) Medication List - Last Reconciled 11/01/24 by Nhan Gonzalez MD atorvastatin 20 mg PO BEDTIME 90 days fluticasone propionate 50 mcg/actuation (Flonase Allergy Relief) 1 spray intranasal Q12H 30 days losartan 25 mg PO DAILY 90 days HPI Comments Details: Speedy returns for follow-up. In the past, seen regarding bradycardia and cardiomegaly. Overall, he is extremely active with absolutely no limitations. He walks several miles a day, as much as 8 miles. He can also do numerous stairs in a single day, sometimes as much as 20+ flights of stairs. He never gets angina or any cardiac symptoms whatsoever. A routine EKG with PCP had shown bradycardia that led to an echocardiogram showing mild chamber enlargement. Eventually was referred here. Overall, since last seen he states he is feeling great. Absolutely no cardiac symptoms. No prior cardiac history either. [facility] Medical History Tubular adenoma of colon Enlarged heart Scrotal cyst ADHD ADD (attention deficit disorder) No pertinent past medical history Surgical History [place] teeth removed Family History Mother History of sinus problem Maternal Grandfather Metastatic squamous cell carcinoma involving throat with unknown primary site Maternal Grandmother Stomach cancer Social History Household Members: Significant Other Housing: Apartment Patient Tobacco Use Status: Former Tobacco user e-Cigarette/Vaping Use: Never Used Substance Use Type: Marijuana Current occupational status: employed 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 Cognitive needs: No Hearing needs: No Vision needs: No Review of Systems Const Denies weakness ENT Denies dizziness Card Denies chest pain, Denies chest pain with activity, Denies syncope, Denies rapid heart rate, Denies pedal edema, Denies edema, Denies leg edema, Denies lightheadedness, Denies palpitations, Denies dyspnea, Denies dyspnea on exertion and Denies orthopnea Resp Denies cough, Denies dyspnea and Denies dyspnea on exertion GI Denies hematochezia and Denies change in stool character Musc Denies abnormal gait, Denies muscle cramps, Denies muscle weakness, Denies numbness, Denies radiating pain into limb and Denies tingling Neuro Denies abnormal gait, Denies dizziness, Denies syncope, Denies numbness, Denies tingling and Denies weakness Endo Denies palpitations Physical Exam Vital Signs: Last Vital Signs Pulse 56 11/01/24 13:40 BP 108/60 11/01/24 13:40 BMI result Body Mass Index 22.5 Const General: comfortable and no acute distress Orientation/consciousness: patient oriented x3 HEENT Other: Unremarkable Head: Yes normal to inspection Neck Neck: Yes normal visual inspection Chest Chest palpation & inspection: normal inspection of the chest Resp Auscultation: clear to auscultation bilaterally Cardio Palpation: normal PMI Heart sounds: S1 normal heart sound present, S2 normal heart sound present, no gallops, no murmurs and no rubs GI Palpation (GI): Soft to palpation Back/Spine/Pelvis Other: unremarkable Skin General skin exam: no rashes or lesions noted Neuro General: patient oriented x3 Extrem General: Yes normal to inspection Psych Mental Status: mental status grossly normal Assessment & Plan Assessment & Plan (1) Bradycardia: Code(s): R00.1 - Bradycardia, unspecified Category: Medical Plan: EKG with sinus bradycardia. Suspect all physiological. Could be related to high levels of baseline physical activity. He has got absolutely no symptoms from this and hence no specific management. (2) Enlarged heart: Code(s): I51.7 - Cardiomegaly Category: Medical Plan: In the echocardiogram, LV size is mildly enlarged at 5.7 cm. Previously just about the same. LVEF is 60-65%. Peak global longitudinal strain is 23.3%. Left atrium is mildly enlarged. There is evidence of increased stroke volume based on LVOT VTi. Most likely findings are related to highly active lifestyle and athletic changes in the heart. In the absence of any symptoms, do not advise any specific management for this. Especially with normal peak global longitudinal strain, reassuring. We did discuss symptoms including exertional shortness of breath, chest pain, dizziness or in fact anything along those lines and if any such instance, he will contact us immediately or seek emergency help. He very well understands this. Otherwise, we will recheck in about 2 years with an echocardiogram. In the interim, he will call with concerns. Coding Level of Care Code Est Pt Level 3 (15623) Diagnoses Bradycardia R00.1 Enlarged heart I51.7
== END 2024-11-01 14:05 | disposition home or self-care (01) ==
PROVIDERS: PCP Family Medicine; Visit Provider Internal Medicine
DX: R00.1 Bradycardia, unspecified (principal); I51.7 Cardiomegaly
CPT/HCPCS: 99213

== ENCOUNTER 2025-05-20 07:33 | Outpatient (REF) | payer BC, SELFPAY ==
[2025-05-20 11:35] LABS: MANUAL DIFF FLAG NO
[2025-05-20 11:43] LABS: Hematocrit 46.4 % (42.0-52.0); Hemoglobin 15.4 g/dl (14.0-18.0); Imm Gran Abs Auto 0.02 X10*3/uL (0.00-0.03); Imm Gran Pct Auto 0.4 % (0.0-0.4); Lymphocytes Absolute Auto 1.4 X10*3/uL (1.2-4.9); Mean Corpuscular HGB Conc 33.2 g/dl (31.0-36.0); Mean Corpuscular Hemoglobin 30.7 pg (27.0-33.0); Mean Corpuscular Volume 92.6 fL (80.0-98.0); NRBC Abs Auto 0.000 X10*3/uL (0.0-0.012); NRBC Pct Auto 0.0 /100WBC (0.0-0.2); Platelet Count 124 X10*3/uL (160-400); Red Blood Count 5.01 X10*6/uL (4.60-5.80); White Blood Count 5.3 X10*3/uL (4.8-10.8)
[2025-05-20 12:04] LABS: Alanine Aminotransferase 40 U/L (0-40); Albumin Level 4.6 g/dL (3.5-5.0); Alkaline Phosphatase 84 U/L (39-117); Anion Gap 12 (12-20); Aspartate Amino Transferase 30 U/L (5-37); Blood Urea Nitrogen 14 mg/dL (9-16); Calcium 9.3 mg/dL (8.4-10.2); Carbon Dioxide 31 mmol/L (22-29); Chloride 106 mmol/L (96-108); Cholesterol 175 mg/dL (<200); Estimated Glomerular Filt Rate > 60; HDL Cholesterol 74 mg/dL (>40); Potassium 4.5 mmol/L (3.3-5.1); Sodium 144 mmol/L (135-145); Total Protein 7.0 g/dL (6.5-8.0); Triglycerides 82 mg/dL (<150)
[2025-05-20 12:05] LABS: Hemoglobin A1C 143.9106 umol/L; Total Hemoglobin (HGBA1C) 4068.2987 umol/L
[2025-05-20 14:17] LABS: Appearance Urine Clear; Glucose Urine UA Negative (Negative); PH 7.5 (5.0-9.0); Specific Gravity - Urine <= 1.005 (1.005-1.025)
== END 2025-05-20 07:34 | disposition home or self-care (01) ==
LOC: HO.WFDLDS 07:33
PROVIDERS: Visit Provider Family Medicine
DX: Z00.00 Encounter for general adult medical examination without abnormal findings (principal); Z12.5 Encounter for screening for malignant neoplasm of prostate; R73.01 Impaired fasting glucose; I10 Essential (primary) hypertension
CPT/HCPCS: 36415; 80053; 80061; 81003; 82043; 82570; 83036; 84153; 84443; 85025

== ENCOUNTER 2025-05-31 10:50 | Outpatient (AMB) | payer BC, SELFPAY ==
--- NOTE | 2025-05-31 10:54 | MHC.PC.OV ---
Vital Signs 05/31/25 11:00 Height 5 ft 10 in Weight 147 lb 8 oz BMI 21.2 BP 114/62 Blood Pressure Location Lt brachial Position Sitting Respiration 14 Pulse 60 Pulse Source Pulse Oximeter Temp 98.4 F Temp Source Temporal Artery Scan Pulse Oximetry (%) 98 Oxygen Delivery Method Room Air Intake Visit Reasons: CPE with f/u labs and health maint Intake Note: Speedy presents in the office today for his annual physical, lab results, as well as, health maintenance. Allergies Seasonal Allergies Allergy (Verified 05/31/25 10:58) Runny Nose Tobacco use date assessed: 05/31/25 Dental Screening Dental Screen Date: 05/31/25 Did you have a dental visit in the last 12 months?: Yes Did you have a dental problem in the last 6 months where you did not have access to dental care?: Yes Was dental information given to patient?: Patient has dentist HPI CPE with f/u labs and health maint HPI Details 59 y/o male presents for a CPE with f/u labs and health maintenance. Labs drawn 05/20/25. Reviewed labs with pt. Fasting glucose 111. A1c 5.4%. Triglycerides 82. TC 175. LDL 85. HDL 74. PSA 0.43. BP today 114/62, 60p. He is on losartan 25mg daily. [facility]LY [facility] Medical History Tubular adenoma of colon Enlarged heart Scrotal cyst ADHD ADD (attention deficit disorder) No pertinent past medical history Surgical History [place] teeth removed Family History Mother History of sinus problem Maternal Grandfather Metastatic squamous cell carcinoma involving throat with unknown primary site Maternal Grandmother Stomach cancer Social History (Updated 05/31/25 @ 11:00 by Julianne Marquez MA) Household Members: Significant Other Housing: Apartment Alcohol intake: never Patient Tobacco Use Status: Former Tobacco user e-Cigarette/Vaping Use: Never Used Second Hand Smoke Exposure: No Substance Use Type: Marijuana Current occupational status: employed 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 1. Little interest or pleasure in doing things: not at all 2. Feeling down, depressed, or hopeless: not at all 3. Trouble falling or staying asleep, or sleeping too much: more than half the days 4. Feeling tired or having little energy: not at all 5. Poor appetite or overeating: not at all 6. Feeling bad about yourself - or that you are a failure or have let yourself or your family down: not at all 7. Trouble concentrating on things, such as reading the newspaper or watching television: not at all 8. Moving or speaking so slowly that other people could have noticed. Or the opposite - being so fidgety or restless that you have been moving around a lot more than usual: nearly every day 9. Thoughts that you would be better off or of hurting yourself in some way: not at all Total score: 5 Depression Screening Interpretation: Positive Depression Screening Done: Yes 66975 - PHQ-9 Billing: Yes Source: Developed by Drs. Sarmad Bass, Humaira Brown, Larry Mckay and colleagues, with an educational sally from [employer]. Thrive Questionnaire Date Thrive assessed: 05/31/25 I am a: Patient What is your living situation today?: I have a steady place to live Within the past 12 months, did the food you bought not last and you didn't have the money to get more?: Sometimes True Within the past 12 months, did you worry whether your food would run out before you got money to buy more?: Sometimes True Do you have trouble paying for medicines?: No Do you have trouble getting transportation to medical appointments?: No Do you have trouble paying your heating and electricity bill?: No Do you have trouble taking care of your child, family member or friend?: No Do you have trouble with day-to-day activities such as bathing, preparing meals, shopping, managing finances, etc.?: No Are you currently unemployed and looking for a job?: No Are you interested in more education?: No Please select the resources that you would like help with: None Currently or been in a relationship where the following occur: No concerns reported THRIVE Score: 2 AUDIT C Alcohol Use Questionnaire (AUDIT-C) 1. How often do you have a drink containing alcohol?: Never 3. How often do you have six or more drinks on one occasion?: Never Total Score: 0 CORRIE-7 AMB Questionnaire CORRIE-7 Date CORRIE - 7 assessed: 05/31/25 Feeling nervous, anxious, or on edge: 3 = Nearly every day Not being able to stop or control worryin = Nearly every day Worrying too much about different things: 3 = Nearly every day Trouble relaxin = Nearly every day Being so restless that it is hard to sit still: 3 = Nearly every day Becoming easily annoyed or irritable: 0 = Not at all Feeling afraid as if something awful might happen: 0 = Not at all Total CORRIE-7 score (0-4 normal; 5-9 mild; 10-14 moderate; 15-21 severe): 15 Source: Developed by Drs. Sarmad Bass, Humaira Brown, Larry Mckay and colleagues, with an educational sally from [employer]. CORRIE-7 Assessment Billing CORRIE-7 Assessment Tool: CORRIE-7 Assessment 17954 Review of Systems Const Denies chills, Denies fatigue, Denies fever(s), Denies headache(s) and Denies weakness Eyes Denies change in vision ENT Denies dizziness, Denies headache(s), Denies hearing loss, Denies nasal congestion, Denies sinus pain, Denies sinus pressure and Denies sore throat Card Denies chest pain, Denies lightheadedness, Denies dyspnea and Denies other (palpitations) Resp Denies cough, Denies dyspnea and Denies wheezing GI Denies abdominal pain, Denies melena, Denies hematochezia, Denies change in bowel habits, Denies dyspepsia and Denies nausea Denies hematuria and Denies dysuria Musc Denies abnormal gait, Denies myalgias, Denies arthralgias, Denies numbness and Denies tingling Skin/Breast Denies rash, Denies unusual bruising and Denies wounds Neuro Denies abnormal gait, Denies dizziness, Denies headache(s), Denies memory loss, Denies numbness, Denies Sensory deficit (Neuro), Denies tingling and Denies weakness Psych Denies anxiety, Denies depression and Denies memory loss Endo Denies cold intolerance, Denies fatigue, Denies heat intolerance, Denies polydipsia and Denies polyuria Hesham/Lymph Denies easy bleeding and Denies easy bruising Aller/Immun Denies wheezing Physical exam (Primary Care) Vital Signs: Last Vital Signs Temp 98.4 F 05/31/25 11:00 Pulse 60 05/31/25 11:00 Resp 14 05/31/25 11:00 BP 114/62 05/31/25 11:00 Pulse Ox 98 05/31/25 11:00 Oxygen Delivery Method Room Air 05/31/25 11:00 BMI result Body Mass Index 21.2 Tobacco/Smoking Status: Tobacco use Status Tobacco use date assessed 05/31/25 05/31/25 11:02 Patient Tobacco Use Status Former Tobacco user 05/31/25 11:00 e-Cigarette/Vaping Use Never Used 05/31/25 11:00 PHQ-9: PHQ-9 Score PHQ-9: Total score 5 05/31/25 11:44 Depression Screening Interpretation: Positive Thrive Assessment: Date of Thrive Assessment Date Thrive assessed 05/31/25 05/31/25 10:57 Currently or been in a relationship where the following occur: No concerns reported Const General: no acute distress, well developed, alert and awake Nutritional Appearance: well nourished Orientation/consciousness: patient oriented x3 HENMT Head: Yes normocephalic and Yes atraumatic Ears: hearing grossly normal bilaterally and TM's normal bilaterally General nose exam: Normal external nose present and Normal nares present Mouth: Normal oral and palatal mucosa present and moist mucous membranes Teeth and gingiva: dentition normal Throat: Yes posterior oropharynx normal Eyes General: appearance normal, both eyes and all related structures Pupils: Equal, round and reactive pupils present and Pupil accommodation reflex normal EOM: EOMs intact bilaterally Neck Neck: Yes normal visual inspection, Yes no lymphadenopathy and Yes trachea midline Thyroid: Thyroid normal Carotids: no bruits Lymphatic: no lymphadenopathy noted Chest Chest palpation & inspection: normal inspection of the chest Resp Effort & Inspection: normal respiratory effort Auscultation: clear to auscultation bilaterally Cardio Rate: regular rate Rhythm: regular rhythm Heart sounds: S1 normal heart sound present, S2 normal heart sound present, no gallops, no murmurs and no rubs Bruits: no abdominal aortic bruits and no carotid bruits GI Palpation (GI): No Abdominal aortic bruit present, Soft to palpation, nontender, No hepatosplenomegaly present and No Rebound tenderness present Auscultation: normal bowel sounds General: Yes no CVA tenderness Back/Spine/Pelvis Back: no CVA tenderness Cervical Spine: cervical ROM normal and No Cervical spine tenderness Thoracic/Lumbar Spine: thoraco-lumbar ROM normal, No pain with thoraco-lumbar ROM, No thoracic spinal tenderness and No lumbar spinal tenderness Skin Lesions: no lesions Rashes: no rashes Trauma: no lacerations or abrasions Wounds: no wounds Nails: normal Neuro General: patient oriented x3 Cranial nerves: Yes Equal, round and reactive pupils present Cognition (Neuro): normal cognition Gait exam (Neuro): Normal gait present Motor exam (neuro): 5/5 motor strength present throughout Sensory Exam: No Sensory deficit (Neuro) Deep tendon reflexes (DTR's): Right patellar reflex intensity grade: 2+ and Left patellar reflex intensity grade: 2+ Extrem General: Yes normal to inspection and No edema Psych Appearance: grossly normal Affect: normal affect Attitude: cooperative Thought process: Normal thought process present Coding Level of Care Code Est Pt Level 3 (09074) Est Pt Prev Care 40-64y(04671) Diagnoses Adult general medical exam Z00.00 Hypertension I10 Elevated fasting glucose R73.01 Screening for colon cancer Z12.11 Screening for prostate cancer Z12.5 Heartburn R12 Additional Codes CORRIE-7 Assessment Billing - CORRIE-7 Assessment Tool: CORRIE-7 Assessment 19105 ([id number]) PHQ-9 - 91456 - PHQ-9 Billing: Yes ([id number]) Assessment & Plan Assessment & Plan (1) Adult general medical exam: Code(s): Z00.00 - Encounter for general adult medical examination without abnormal findings Category: Medical Plan: 59-year-old male presents for complete physical exam Encouraged healthy diet and ongoing active lifestyle and plenty of exercise (2) Hypertension: Code(s): I10 - Essential (primary) hypertension Category: Medical Plan: Blood pressure is well controlled. Goal is less than 130/80 Continue losartan (3) Elevated fasting glucose: Code(s): R73.01 - Impaired fasting glucose Category: Medical Plan: A1c is within normal range Likely some insulin resistance Advised diet low in sugars and starches (4) Screening for colon cancer: Code(s): Z12.11 - Encounter for screening for malignant neoplasm of colon Category: Medical Plan: Last colonoscopy at [facility] Up-to-date Follow-up in 5 years (5) Screening for prostate cancer: Code(s): Z12.5 - Encounter for screening for malignant neoplasm of prostate Category: Medical Plan: PSA is within normal range Will continue annual screening (6) Heartburn: Code(s): R12 - Heartburn Category: Medical Plan: Intermittent heartburn and patient has known triggers Avoid triggers Can try to anticipate symptoms and use OTC Pepcid as needed Call or return to office if symptoms worsening or becoming more frequent
--- OUTSIDE RECORDS SUMMARY | 2025-05-31 10:58 | XMS_ITS | Clinical Summary ---
Author Organization [facility] Address [address] [place] [id number] Phone Care Team Providers Care Dancing Instructor Name Role Phone Pcp, Unknown Primary Care Provider Unavailabl e Allergies No known active allergies Medications No known medications Active Problems No known active problems Social History Tobacco Use Types Packs/Day Years Used Date Smoking Tobacco: Former Smokeless Tobacco: Never Comments:20 years ago Alcohol Use Standard Drinks/Week Comments Yes 0 (1 standard drink = 0.6 oz pur e alcohol) socially Education Answer Date Recorded Are you interested in more education? Not on tala e 02/11/2023 Are you concerned about learning? Not on file 02/11/2023 No 02/11/2023 No 02/11/2023 Digital Access Answer Date Recorded No 03/12/2023 No 03/12/2023 No 03/12/2023 Reliable internet access at home? Not on file 03/12/2023 Device with a working camera? Not on file Sex and Gender Information Value Date Recorded Sex Assigned at Not on file Legal Sex Male 7:26 PM EDT Gender Identity Not on file Sexual Orientation Not on file Last Filed Vital Signs Vital Sign Reading Time Taken Comments Blood Pressure 127/82 08/11/2020 7:39 PM EDT Pulse 56 08/11/2020 7:39 PM EDT Temperature 36.7 C (98.1 F) 08/11/2020 7:39 PM EDT Respiratory Rate - - Oxygen Saturation 98% 08/11/2020 7:39 PM EDT Inhaled Oxygen Concentration - - Weight 73 kg (161 lb) 08/11/2020 7:39 PM EDT Height 177.8 cm (5' 10 ) 08/11/2020 7:39 PM EDT Body Mass Index 23.1 08/11/2020 7:39 PM EDT Plan of Treatment Health Maintenance Due Date Last Done Comments Adult Td,Tdap Booster 1965 LIPID PANEL 1965 DEPRESSION SCREENING 1977 SMOKING Hx and SMOKELESS TOBACCO SCREENING 1978 HEPATITIS C SCREENING 1983 HIV ONE-TIME SCREENING (18-6 5 YEARS) 1983 COLOGUARD 2010 COLONOSCOPY 2010 COLORECTAL CANCER SCREENING 2010 FIT TEST 2010 FOBT 2010 SIGMOIDOSCOPY 2010 VIRTUAL COLONOSCOPY 2010 PNEUMOCOCCAL VACCINES (50+ years) (1 of 1 - PCV) 2015 ZOSTER VACCINES (1 of 2) 2015 COVID-19 VACCINE (3 - 2023-2 5 season) 2024 04/12/2021, 03/22/2021 HEPATITIS A VACCINES Aged Out No long er eligible based on patient's age to complete this topic HIB VACCINES Aged Out No longer eligi ble based on patient's age to complete this topic MENINGOCOCCAL VACCINES (ACWY) Aged Out No longer eligible based on patient's age to complete this topic MENINGOCOCCAL VACCINES (B) Aged Out N o longer eligible based on patient's age to complete this topic Medical Devices Not on file Insurance [facility] PPO [facility] OUT OF STATE PPO [employer]UE [place] OUT OF STATE PPO [employer]UE [place] OUT OF STATE PPO [employer]UE [place] OUT OF STATE PPO [employer]UE [place] OUT OF STATE PPO BLUE [place]OSS OUT OF STATE PPO BLUE [place]OSS OUT OF STATE PPO [facility] OUT OF STATE PPO Care Teams Dancing Instructor Relationship Specialty Start Date End Date Pcp, Unknown PCP - General 08/11/20 Additional Source Comments The information contained in this document represents components of the legal health record. It is not the complete legal health record.[facility]
[2025-05-31 11:00] VITALS: BP 114/62; PULSE 60; RESP 14; TEMP 36.9; O2SAT 98; BMI 21.2
== END 2025-05-31 11:59 | disposition home or self-care (01) ==
LOC: HO.HMCFM 10:51
PROVIDERS: PCP Family Medicine; Visit Provider Family Medicine
DX: Z00.00 Encounter for general adult medical examination without abnormal findings (principal); I10 Essential (primary) hypertension; R12 Heartburn; R73.01 Impaired fasting glucose; Z12.11 Encounter for screening for malignant neoplasm of colon; Z12.5 Encounter for screening for malignant neoplasm of prostate

== ENCOUNTER → 2025-05-31 10:50 | Outpatient (BNVA) | payer BC, SELFPAY | PROVIDERS: PCP Family Medicine; Visit Provider Family Medicine | DX: Z00.00 Encounter for general adult medical examination without abnormal findings (principal); I10 Essential (primary) hypertension; R73.01 Impaired fasting glucose; R12 Heartburn | CPT/HCPCS: 96127 ==

== ENCOUNTER 2025-09-09 07:30 | Outpatient (REF) | payer BC, SELFPAY ==
--- OUTSIDE RECORDS SUMMARY | 2025-09-09 07:32 | XMS_ITS | Clinical Summary ---
Author Organization [facility] Address [address] [place] [phone] Phone Care Team Providers Care Physician Practice Coordinator Name Role Phone Pcp, Unknown Primary Care [...] 2015 ZOSTER VACCINES (1 of 2) 2015 INFLUENZA VACCINE (#1) 2025 COVID-19 VACCINE (3 - 2024-2 6 season) 2025 04/12/2021, 03/22/2021 RSV VACCINE (1 - 1-dose 75+ series) 2040 HEPATITIS A VACCINES Aged Out No long [...] topic Medical Devices Not on file Insurance [facility] OUT OF [facility] PPO BLUE CROSS OUT OF STATE PPO BLUE CROSS OUT OF STATE PPO BLUE [place] OUT OF STATE PPO BLUE [place] OUT OF STATE PPO BLUE [place] OUT OF STATE PPO [employer]UE [place]OSS OUT OF STATE PPO BLUE [place]OSS OUT OF STATE PPO [facility] OUT STATE PPO Care Teams Physician Practice Coordinator Relationship Specialty Start Date End Date Pcp, Unknown PCP - General 08/11/20 Additional Source Comments The information contained in this document represents components of the legal health record. It is not the complete legal health record.[facility]
[2025-09-09 11:27] LABS: Hematocrit 45.1 % (42.0-52.0); Hemoglobin 14.7 g/dl (14.0-18.0); Imm Gran Abs Auto 0.02 X10*3/uL (0.00-0.03); Imm Gran Pct Auto 0.4 % (0.0-0.4); Lymphocytes Absolute Auto 1.6 X10*3/uL (1.2-4.9); MANUAL DIFF FLAG SCAN; Mean Corpuscular HGB Conc 32.6 g/dl (31.0-36.0); Mean Corpuscular Hemoglobin 30.6 pg (27.0-33.0); Mean Corpuscular Volume 94.0 fL (80.0-98.0); NRBC Abs Auto 0.000 X10*3/uL (0.0-0.012); NRBC Pct Auto 0.0 /100WBC (0.0-0.2); PLT CLUMP 1; Red Blood Count 4.80 X10*6/uL (4.60-5.80); SCAN SMEAR FLAG 1
[2025-09-09 11:44] LABS: Platelet Count 126 X10*3/uL (160-400); White Blood Count 5.3 X10*3/uL (4.8-10.8)
[2025-09-09 15:20] LABS: Alanine Aminotransferase 59 U/L (0-40); Albumin Level 4.4 g/dL (3.5-5.0); Alkaline Phosphatase 76 U/L (39-117); Anion Gap 9 (12-20); Aspartate Amino Transferase 37 U/L (5-37); Blood Urea Nitrogen 14 mg/dL (9-16); Calcium 9.2 mg/dL (8.4-10.2); Carbon Dioxide 30 mmol/L (22-29); Chloride 107 mmol/L (96-108); Estimated Glomerular Filt Rate > 60; Potassium 4.0 mmol/L (3.3-5.1); Sodium 142 mmol/L (135-145); Total Protein 6.5 g/dL (6.5-8.0)
== END 2025-09-09 07:31 | disposition home or self-care (01) ==
LOC: HO.WFDLDS 07:30
PROVIDERS: Visit Provider Family Medicine
DX: Z00.00 Encounter for general adult medical examination without abnormal findings (principal); R73.01 Impaired fasting glucose; R00.1 Bradycardia, unspecified
CPT/HCPCS: 36415; 80053; 83036; 85025

== ENCOUNTER 2025-09-19 08:10 | Outpatient (AMB) | payer BC, SELFPAY ==
--- NOTE | 2025-09-19 08:12 | MHC.PC.OV ---
Vital Signs 09/19/25 08:15 Height 5 ft 10 in Weight 160 lb BMI 23.0 BP 124/58 L Blood Pressure Location Rt brachial Position Sitting Respiration 12 Pulse 52 Pulse Source Pulse Oximeter Temp 96.8 F Temp Source Temporal Artery Scan Pulse Oximetry (%) 98 Oxygen Delivery Method Room Air Intake Visit Reasons: f/u elevated fasting glucose - see comments Intake Note: Follow up on elevated glucose. Patient has questions regarding his caffeine intake. Actor Understudy Required: No Allergies Seasonal Allergies Allergy (Verified 09/19/25 08:13) Runny Nose Medication List - Last Reconciled 09/19/25 by Luis Guevara MD atorvastatin 20 mg PO BEDTIME 90 days fluticasone propionate 50 mcg/actuation (Flonase Allergy Relief) 1 spray intranasal Q12H 30 days loratadine (Claritin) 10 mg PO DAILY losartan 25 mg PO DAILY 90 days Tobacco use date assessed: 09/19/25 Dental Screening Dental Screen Date: 09/19/25 Did you have a dental visit in the last 12 months?: Yes Did you have a dental problem in the last 6 months where you did not have access to dental care?: No Was dental information given to patient?: Patient has dentist HPI f/u elevated fasting glucose - see comments HPI Details Patient returns to follow-up lab work. Blood pressure today 124/58 on losartan and no problems with this medication Mild elevation in liver enzyme. He has gained about 5 lbs. Patient is exercising daily Patient drinks about 3 cups of coffee each day. Feels well. No complaints PFSH Medical History Tubular adenoma of colon Enlarged heart Scrotal cyst ADHD ADD (attention deficit disorder) No pertinent past medical history Surgical History [place] teeth removed Family History Mother History of sinus problem Maternal Grandfather Metastatic squamous cell carcinoma involving throat with unknown primary site Maternal Grandmother Stomach cancer Social History (Updated 05/31/25 @ 11:00 by Julianne Marquez MA) Household Members: Significant Other Housing: Apartment Alcohol intake: never Patient Tobacco Use Status: Former Tobacco user e-Cigarette/Vaping Use: Never Used Second Hand Smoke Exposure: No Substance Use Type: Marijuana Current occupational status: employed 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 1. Little interest or pleasure in doing things: not at all 2. Feeling down, depressed, or hopeless: not at all 3. Trouble falling or staying asleep, or sleeping too much: not at all 4. Feeling tired or having little energy: not at all 5. Poor appetite or overeating: not at all 6. Feeling bad about yourself - or that you are a failure or have let yourself or your family down: not at all 7. Trouble concentrating on things, such as reading the newspaper or watching television: not at all 8. Moving or speaking so slowly that other people could have noticed. Or the opposite - being so fidgety or restless that you have been moving around a lot more than usual: not at all 9. Thoughts that you would be better off or of hurting yourself in some way: not at all Total score: 0 Depression Screening Interpretation: Negative Depression Screening Done: Yes 21365 - PHQ-9 Billing: Yes Source: Developed by Drs. Sarmad Bass, Humaira Brown, Larry Mckay and colleagues, with an educational sally from [employer]. Thrive Questionnaire Date Thrive assessed: 09/19/25 I am a: Patient What is your living situation today?: I have a steady place to live Within the past 12 months, did the food you bought not last and you didn't have the money to get more?: Sometimes True Within the past 12 months, did you worry whether your food would run out before you got money to buy more?: Sometimes True Do you have trouble paying for medicines?: No Do you have trouble getting transportation to medical appointments?: No Do you have trouble paying your heating and electricity bill?: No Do you have trouble taking care of your child, family member or friend?: No Do you have trouble with day-to-day activities such as bathing, preparing meals, shopping, managing finances, etc.?: No Are you currently unemployed and looking for a job?: No Are you interested in more education?: No Please select the resources that you would like help with: None Currently or been in a relationship where the following occur: No concerns reported THRIVE Score: 2 CORRIE-7 AMB Questionnaire CORRIE-7 Date CORRIE - 7 assessed: 09/19/25 Feeling nervous, anxious, or on edge: 0 = Not at all Not being able to stop or control worryin = Not at all Worrying too much about different things: 0 = Not at all Trouble relaxin = Not at all Being so restless that it is hard to sit still: 0 = Not at all Becoming easily annoyed or irritable: 0 = Not at all Feeling afraid as if something awful might happen: 0 = Not at all Total CORRIE-7 score (0-4 normal; 5-9 mild; 10-14 moderate; 15-21 severe): 0 Source: Developed by Drs. Sarmad Bass, Humaira Brown, Larry Mckay and colleagues, with an educational sally from [employer]. CORRIE-7 Assessment Billing CORRIE-7 Assessment Tool: CORRIE-7 Assessment 97859 Review of Systems Const Denies chills, Denies fatigue, Denies fever(s), Denies headache(s) and Denies weakness ENT Denies dizziness and Denies headache(s) Card Denies chest pain, Denies lightheadedness, Denies dyspnea and Denies other (Palpitations) Resp Denies cough, Denies dyspnea, Denies wheezing and Denies other ( shortness of breath) Musc Denies numbness and Denies tingling Neuro Denies dizziness, Denies headache(s), Denies numbness, Denies tingling, Denies paresthesias and Denies weakness Psych Denies anxiety and Denies depression Endo Denies fatigue Aller/Immun Denies wheezing Physical exam (Primary Care) Vital Signs: Last Vital Signs Temp 96.8 F 09/19/25 08:15 Pulse 52 09/19/25 08:15 Resp 12 09/19/25 08:15 BP 124/58 L 09/19/25 08:15 Pulse Ox 98 09/19/25 08:15 Oxygen Delivery Method Room Air 09/19/25 08:15 BMI result Body Mass Index 23.0 Tobacco/Smoking Status: Tobacco use Status Tobacco use date assessed 09/19/25 09/19/25 08:18 Patient Tobacco Use Status Former Tobacco user 09/19/25 08:18 e-Cigarette/Vaping Use Never Used 09/19/25 08:18 PHQ-9: PHQ-9 Score PHQ-9: Total score 0 09/19/25 08:18 Depression Screening Interpretation: Negative Thrive Assessment: Date of Thrive Assessment Date Thrive assessed 09/19/25 09/19/25 08:18 Currently or been in a relationship where the following occur: No concerns reported Const General: no acute distress and well developed Nutritional Appearance: well nourished Orientation/consciousness: patient oriented x3 HENMT Head: Yes normocephalic and Yes atraumatic Eyes General: appearance normal, both eyes and all related structures Pupils: Equal, round and reactive pupils present EOM: EOMs intact bilaterally Resp Effort & Inspection: normal respiratory effort Auscultation: clear to auscultation bilaterally Cardio Rate: regular rate Rhythm: regular rhythm Heart sounds: S1 normal heart sound present, S2 normal heart sound present, no gallops, no murmurs and no rubs Neuro General: patient oriented x3 and gait normal Cranial nerves: Yes Equal, round and reactive pupils present Psych Affect: normal affect Coding Level of Care Code Est Pt Level 3 (62495) Diagnoses Hypertension I10 Elevated liver enzymes R74.8 Additional Codes CORRIE-7 Assessment Billing - CORRIE-7 Assessment Tool: CORRIE-7 Assessment 53917 ([id number]) PHQ-9 - 99200 - PHQ-9 Billing: Yes ([id number]) Assessment & Plan Assessment & Plan (1) Hypertension: Code(s): I10 - Essential (primary) hypertension Category: Medical Plan: Blood pressure is well controlled. Goal is less than 140/90 Continue current medications Continue exercise Encouraged some weight loss (2) Elevated liver enzymes: Code(s): R74.8 - Abnormal levels of other serum enzymes Category: Medical Plan: Mildly elevated liver enzyme Encouraged weight loss and good hydration. Not using Tylenol drinking alcohol Will recheck in about 3 months. If still elevated, get ultrasound Orders: Orders Comprehensive [place]. Panel Fast Today R74.8 - Abnormal levels of other serum enzymes, Z00.00 - Encounter for general adult medical examination without abnormal findings Hemoglobin A1c Today R73.01 - Impaired fasting glucose, R74.8 - Abnormal levels of other serum enzymes
[2025-09-19 08:15] VITALS: BP 124/58; PULSE 52; RESP 12; TEMP 36; O2SAT 98; BMI 23.0
--- OUTSIDE RECORDS SUMMARY | 2025-09-19 08:20 | XMS_ITS | Clinical Summary ---
Author Organization [facility] Address [address] [place] [id number] Phone Care Team Providers Care Radio Intelligence Operator Name Role Phone Pcp, Unknown Primary Care [...] topic Medical Devices Not on file Insurance [facility] OUT OF [facility] PPO BLUE CROSS OUT OF STATE PPO BLUE CROSS OUT OF STATE PPO BLUE CROSS OUT OF STATE PPO BLUE CROSS OUT OF STATE PPO BLUE CROSS OUT OF STATE PPO BLUE CROSS OUT OF STATE PPO BLUE CROSS OUT OF STATE PPO [facility] OUT STATE PPO Care Teams Radio Intelligence Operator Relationship Specialty Start Date End Date Pcp, Unknown PCP - General 08/11/20 Additional Source Comments The information contained in this document represents components of the legal health record. It is not the complete legal health record.[facility]
== END 2025-09-19 08:54 | disposition home or self-care (01) ==
LOC: HO.HMCFM 08:11
PROVIDERS: PCP Family Medicine; Visit Provider Family Medicine
DX: I10 Essential (primary) hypertension (principal); R74.8 Abnormal levels of other serum enzymes

== ENCOUNTER → 2025-09-19 08:10 | Outpatient (BNVA) | payer BC, SELFPAY | PROVIDERS: PCP Family Medicine; Visit Provider Family Medicine | DX: I10 Essential (primary) hypertension (principal); R74.8 Abnormal levels of other serum enzymes | CPT/HCPCS: 96127 ==